=== PATIENT | male | born 1960 | race Caucasian/White ===

== ENCOUNTER 2016-12-10 09:30 | Inpatient (IN) | payer MEDICARE, BC ==
[~2016-12-10] VITALS: Ht 188 cm; Wt 110.4 kg
[2016-12-10] MEDS ORDERED: ONDANSETRON 4 MG INJ IV STA ×2 (09:52→11:14)
[2016-12-10] MEDS ORDERED: morphine 4 MG/ML VIAL IV STA (09:52)
--- NOTE | 2016-12-10 10:03 | RADRPT ---
PROCEDURE: XR Chest. CLINICAL INDICATION: Shortness of breath. Syncope TECHNIQUE: A single portable view of the chest was obtained. COMPARISON: None FINDINGS: The cardiomediastinal silhouette is within normal limits. Mild left lower lung zone airspace disease is seen. Mild right lower lung zone airspace disease is also suggested. The remaining lungs and pl eural spaces are clear. The soft tissues and osseous structures are unremarkable. IMPRESSION: Mild bibasilar airspace disease which may represent atelectasis. RPTAT: HPNM Physician Hayder Date Time Electronically viewed and signed by Physician Hayder on 12/10/2016 10:02 /
--- NOTE | 2016-12-10 10:05 | RADRPT ---
PROCEDURE: XR Shoulder. CLINICAL INDICATION: Right shoulder pain. Fall TECHNIQUE: Internal and external rotation views of the right shoulder were obtained. COMPARISON: None FINDINGS: Widening of the acromioclavicular distance is seen as well as the coracoclavicular distance. Elevat ion of the distal clavicle in relation to the acromion is seen. No acute fracture is seen. The osseo us structures are well mineralized. The soft tissue structures are intact. The visualized portions of the chest appear unremarkable. IMPRESSION: Radiographic findings suggestive of a grade 3 acromioclavicular joint separation. RPTAT: HPNM Physician Hayder Date Time Electronically viewed and signed by Physician Hayder on 12/10/2016 10:05 /
--- NOTE | 2016-12-10 10:21 | RADRPT ---
PROCEDURE: CT Brain without. CLINICAL INDICATION: Fall, on Coumadin. TECHNIQUE: A CT of the brain was performed on multidetector high-resolution CT scanner utilizing a xial sections from the skull base through the vertex without contrast. The scan was reviewed in sof t tissue brain and high frequency resolution bone algorithm windows. Images were reviewed on a high -resolution PACS workstation. One or more the following does reduction techniques were utilized: Aut omated exposure control, adjustment of the mA/ or kV according to patient's size, or use of iterativ e reconstruction technique. The exam CTDI = 43.86 mGy and the DLP = 720.23 mGy-cm. COMPARISON: None available. FINDINGS: The ventricles and sulci are mildly prominent indicative of volume loss. There is no intracranial h emorrhage, mass effect or midline shift. No abnormal intra-axial or extra-axial fluid collections a re seen. The garcia/white matter differentiation is preserved. The visualized paranasal sinuses demons trate mild scattered mucosal thickening or pronounced in ethmoid air cells. There is debris within the right sphenoid sinus. The visualized mastoid air cells are essentially clear. IMPRESSION: 1. No acute intracranial hemorrhage, transcortical infarction or mass effect. 2. Mild generalized cerebral volume loss. RPTAT: HH .Kristal Waters MD, MD Date Time Electronically viewed and signed by .Kristal Waters MD, MD on 12/10/2016 10:21 .N/
--- NOTE | 2016-12-10 10:48 | RADRPT ---
PROCEDURE: XR Knee. CLINICAL INDICATION: Left knee pain. TECHNIQUE: Three views of the left knee are available for review. COMPARISON: None available FINDINGS: No acute fracture or dislocation is seen. Mild tricompartmental degenerative changes of knee are not ed, more pronounced in medial compartment. No radiopaque foreign body is identified. Alignment is a natomic. No significant soft tissue swelling is noted. IMPRESSION: 1. No acute fracture or dislocation. 2. Mild tricompartmental degenerative changes of knee are noted, more pronounced in medial compartm ent. RPTAT: HH .Kristal Waters MD, Date Time Electronically viewed and signed by .Kristal Waters MD, on 12/10/2016 10:48 .N/
[2016-12-10] MEDS ORDERED: DILT240C79 PO (10:56)
[2016-12-10] MEDS ORDERED: WARF6TAB PO (10:56)
[2016-12-10] MEDS ORDERED: TRAM-40 PO (10:57)
[2016-12-10 10:58] LABS: ADD SCAN DIFF NO
[2016-12-10] MEDS ORDERED: ADV25050 INHALATION (10:59)
[2016-12-10] MEDS ORDERED: ALBU8.5H3 INH (11:00)
[2016-12-10 11:01] LABS: BASOPHILS % 0.1 % (0.0-2.0); EOSINOPHILS % 0.1 % (0.0-7.0); HEMATOCRIT 41.7 % (42.0-52.0); LYMPHOCYTES # 0.7 10^3/ul (0.8-2.9); LYMPHOCYTES % 4.7 % (15.0-51.0); MEAN CORPUSCULAR HEMOGLOBIN 29.9 pg (29.0-33.0); MEAN CORPUSCULAR HGB CONC 33.6 g/dl (32.0-37.0); MEAN CORPUSCULAR VOLUME 89.1 fl (82.0-101.0); MEAN PLATELET VOLUME 8.3 fl (7.4-10.4); MONOCYTE # 0.7 10^3/ul (0.3-0.9); MONOCYTES % 4.9 % (0.0-11.0); NEUTROPHIL # 12.7 10^3/ul (1.6-7.5); NEUTROPHILS % 89.6 % (39.0-77.0); PLATELET COUNT 234 10^3/UL (140-415); RED BLOOD COUNT 4.68 10^6/ul (4.70-6.10); RED CELL DISTRIBUTION WIDTH 14.6 % (11.5-14.5); WHITE BLOOD COUNT 14.2 10^3/ul (4.8-10.8)
[2016-12-10] MEDS ORDERED: FENT1PAT7 TD (11:03)
[2016-12-10 11:08] VITALS: TEMP 98.1
[2016-12-10 11:12] LABS: PARTIAL THROMBOPLASTIN TIME 39.3 Sec (25.0-35.0); PROTIME 39.7 Sec (12.2-14.2); PT RATIO 3.1
[2016-12-10 11:14] LABS: ALANINE AMINOTRANSFERASE 29 IU/L (13-69); ALBUMIN 4.3 g/dl (3.3-4.9); ALBUMIN/GLOBULIN RATIO 1.19; ALKALINE PHOSPHATASE 71 IU/L (42-121); ANION GAP 12 (8-16); ASPARTATE AMINO TRANSFERASE 47 IU/L (15-46); BILIRUBIN,INDIRECT 0.9 mg/dl (0-1.1); BILIRUBIN,TOTAL 0.9 mg/dl (0.2-1.3); BLOOD UREA NITROGEN 18 mg/dl (7-20); CALCIUM 9.2 mg/dl (8.4-10.2); CARBON DIOXIDE 26 mmol/L (21-31); CHLORIDE 103 mmol/L (97-110); CREATININE 1.09 mg/dl (0.61-1.24); GLUCOSE 117 mg/dl (70-220); POTASSIUM 3.5 mmol/L (3.5-5.1); SODIUM 137 mmol/L (135-144); TOTAL PROTEIN 7.9 g/dl (6.1-8.1)
[2016-12-10] MEDS ORDERED: HYDROmorphONE 1 MG/ML SYG IV STA ×2 (11:14→11:56)
[2016-12-10 11:25] LABS: TROPONIN-I < 0.012 ng/ml (0.00-0.12)
--- NOTE | 2016-12-10 12:59 | ERA ---
ER Documentation Chief Complaint Date/Time DATE: 12/10/16 TIME: 12:45 Chief Complaint LT SHOULDER PAIN , LT KNEE PAIN S/P FALL FROM CHAIR HPI This is a 56-year-old male that presents to the emergency department brought in by EMS after he had an unwitnessed fall just prior to arrival. The patient indicates he got up to go to the bathroom and after urinating he attempted to walk back to his bed. Between the bathroom and the bed the patient stated he had a brief transient loss of consciousness, for an unknown amount of time, with complete spontaneous recovery. When he had the syncope episode he hit his left shoulder and the left side of his head. 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 He had an IVC filter placed in 1998 which he stated is nonfunctioning and therefore has been on Coumadin since that time. He denies a headache or neck pain. He is left- handed dominant and stated he is having 10 out of 10 pain in his left shoulder and is unable to move the left shoulder secondary to pain. EMS arrived after the patient phone 911 on his cordless phone and they indicated the patient was awake on the floor and did require assistance to ambulate. Once EMS helped the patient up he was able to ambulate without any difficulty. He denies any swelling or pain of his lower extremities. He indicates his last hospitalization was August 22, 2016 at [facility] for cellulitis of his lower extremity where he received IV antibiotics and underwent rehabilitation for roughly 8 days. Patient at this time denies any shortness of breath at rest or exertion and he denies any chest pain or pressure that radiates to the neck arm back or jaw ROS All systems reviewed and are negative except as per history of present illness. Medications Home Meds Reported Medications Fentanyl Patch* (Duragesic Patch*) 12 Mcg/Hr Transdermal Patch, 1 PATCH TD Q72H , PATCH 50MCG PATCH 12/10/16 Albuterol Sulfate* (Proair HFA*) 8.5 Gm Hfa.aer.ad, 2 PUFF INH Q6H Y for WHEEZING AND SOB, #1 INHALER 12/10/16 Salmeterol Xinaf/Fluticasone* (Advair*) 250-50 Diskus Inhaler, 1 INH INHALATION BID, #1 INHALER 12/10/16 Tramadol Hcl* (Ultram*) 50 Mg Tablet, 50 MG PO BID Y for PAIN, TAB 12/10/16 Diltiazem Hcl* (Cardizem CD*) 240 Mg Cap.sr.24h, 240 MG PO DAILY, #30 CAP 12/10/16 Warfarin Sodium* (Coumadin*) 6 Mg Tablet, 6 MG PO DAILY, TAB 12/10/16 Allergies Allergies: Coded Allergies: No Known Allergy (Unverified , 12/10/16) PMhx/Soc Anesthesia Reaction: No Hx 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 Disorder: No Hx Respiratory Disorders: Yes (ASTHMA ) Hx Cardiac Disorders: Yes (HTN) Hx Psychiatric Problems: No Hx Miscellaneous Medical Probl: Yes (BLOOD CLOT ) Hx Alcohol Use: Yes Hx Substance Use: No Hx Tobacco Use: Yes Smoking Status: Current some day smoker Physical Exam Vitals Vital Signs Date Time Temp Pulse Resp B/P Pulse Ox O2 Delivery O2 Flow Rate FiO2 12/10/16 11:08 98.1 96 18 149/98 100 Room Air 12/10/16 09:39 98.1 97 18 145/90 99 Physical Exam Constitutional:Well-developed. Well-nourished. HEENT:Normocephalic. Atraumatic.Pupils were equal round reactive to light. Moist mucous membranes.No tonsillar exudates. No nasal septal hematoma. No hemotympanum. Ecchymosis over the lateral aspect of the left zygomatic arc with no subcutaneous emphysema. No midface mobility. Neck: No nuchal rigidity. No lymphadenopathy. No posterior cervical spine tenderness or step-offs. Respiratory: Not using accessory muscles of respiration.Lungs were clear to auscultation bilaterally. No rhonchi. No rales. No wheezing. Cardiovascular: Regular rate regular rhythm.No murmurs. No rubs were appreciated.S1, S2 normal. Distal pulses are palpable 2+ bilaterally. GI: Abdomen was soft. Nontender. Non Distended. No pulsatile abdominal masses or bruits. No rebound. No guarding. Bowel sounds were present and normal. Muscle skeletal: Full range of motion of both the right upper and lower extremities bilaterally.Normal muscle tone.No assymetrical calf tenderness or swelling. Tenderness of the left patella with no effusion. Lizzie's test negative bilaterally. Patient unable to move the left upper extremity due to severe pain. Tenderness over the left humeral head with no obvious bony deformity. Handgrip equal and symmetrical bilaterally. Skin: No petechia, no purpura. No lesions on the palms or the soles of the feet. No maculopapular rash. NEURO: Patient was alert, awake, orientated x3.No facial droop. Gait observed and normal with no ataxia.Speech had regular rate and rhythm. No focal neurological deficits. Result Diagram: 12/10/16 1052 12/10/16 1052 Results 24 hrs Laboratory Tests Test 12/10/16 10:52 White Blood Count 14.210^3/ul Red Blood Count 4.6810^6/ul Hemoglobin 14.0g/dl Hematocrit 41.7% Mean Corpuscular Volume 89.1fl Mean Corpuscular Hemoglobin 29.9pg Mean Corpuscular Hemoglobin Concent 33.6g/dl Red Cell Distribution Width 14.6% Platelet Count 89237^3/UL Mean Platelet Volume 8.3fl Neutrophils % 89.6% Lymphocytes % 4.7% Monocytes % 4.9% Eosinophils % 0.1% Basophils % 0.1% Nucleated Red Blood Cells % 0.0/100WBC Neutrophils # 12.710^3/ul Lymphocytes # 0.710^3/ul Monocytes # 0.710^3/ul Eosinophils # 0.010^3/ul Basophils # 0.010^3/ul Nucleated Red Blood Cells # 0.010^3/ul Prothrombin Time 39.7Sec Prothrombin Time Ratio 3.1 INR International Normalized Ratio 4.00 Activated Partial Thromboplast Time 39.3Sec Sodium Level 137mmol/L Potassium Level 3.5mmol/L Chloride Level 103mmol/L Carbon Dioxide Level 26mmol/L Anion Gap 12 Blood Urea Nitrogen 18mg/dl Creatinine 1.09mg/dl Glucose Level 117mg/dl Calcium Level 9.2mg/dl Total Bilirubin 0.9mg/dl Direct Bilirubin 0.00mg/dl Indirect Bilirubin 0.9mg/dl Aspartate Amino Transf (AST/SGOT) 47IU/L Alanine Aminotransferase (ALT/SGPT) 29IU/L Alkaline Phosphatase 71IU/L Troponin I < 0.012ng/ml Total Protein 7.9g/dl Albumin 4.3g/dl Globulin 3.60g/dl Albumin/Globulin Ratio 1.19 Current Medications Medications (Trade) Dose Ordered Sig/Valentino Route PRN Reason Start Time Stop Time Status Last Admin Dose Admin Morphine Sulfate (morphine) 4 mg ONCE STAT IV 12/10/16 09:52 12/10/16 09:53 DC 12/10/16 09:57 Ondansetron HCl (Zofran Inj) 4 mg ONCE STAT IV 12/10/16 09:52 12/10/16 09:53 DC 12/10/16 09:57 Hydromorphone HCl (Dilaudid) 1 mg ONCE STAT IV 12/10/16 11:14 12/10/16 11:15 DC 12/10/16 11:19 Ondansetron HCl (Zofran Inj) 4 mg ONCE STAT IV 12/10/16 11:14 12/10/16 11:15 DC 12/10/16 11:19 Hydromorphone HCl (Dilaudid) 1 mg ONCE STAT IV 12/10/16 11:56 12/10/16 11:57 DC 12/10/16 12:12 Ondansetron HCl (Zofran Inj) 4 mg ER BRIDGE PRN IV NAUSEA AND/OR VOMITING 12/10/16 13:00 12/11/16 12:59 Acetaminophen (Tylenol Tab) 650 mg ER BRIDGE PRN PO MILD PAIN/FEVER 12/10/16 13:00 12/11/16 12:59 Procedures/MDM The patient presented to the emergency department with a transient loss of consciousness with loss of postural tone, suggestive of a syncope episode. The differential diagnosis of syncope is vast but my workup considered common benign disorders to life-threatening processes. Therefore my differential diagnosis included but was not limited to reflex-mediated syncope such as vasovagal or carotid sinus syncope from coughing, sneezing, micturition, or GI stimulation (eg, defecation). Other etiologies in my workup included orthostatic hypotension which could cause syncope from an abrupt drop in venous return to heart from volume depletion. An EKG and cardiac enzymes were obtained to rule out cardiac arrhythmias or ischemia. Cardiopulmonary disease such as valvular disease, hypertrophic cardiomyopathy, pericardial tamponade, or pulmonary embolism were considered as a factor causing the patients syncope episode. The patient had no difference in blood pressure in both arms that could suggest aortic dissection or subclavian steal syndrome. Rectal exam was negative for fecal occult blood that could suggest GI bleeding. Ancillary laboratory work was obtained to evaluate for metabolic or electrolyte abnormalities. The patient had no witnessed brief tonic movements that could suggest postictal confusion. The patient was placed on a gumming machine operator, continuous pulse oximetry and IV access established by nursing staff. I did obtain a CT scan of the head which showed no acute intracerebral hemorrhage mass-effect or midline shift. I obtained a 2 view radiograph of the left shoulder which indicated there is no fracture but the patient did have a grade 3 chromic clavicular tear. The patient was treated with analgesic medication which included Dilaudid as the patient states he has a high tolerance to analgesic medication. The patient was placed in a sling on the left upper extremity for immobilization. 12 Lead EKG tracing ordered and reviewed by myself showed: Normal sinus rhythm of 94 bpm and no arrhythmia. OH interval normal. QRS duration normal. No ST segment elevation No ST segment depression. No changes consistent with acute ischemia. The patient is supratherapeutic on his Coumadin with INR of 4.0 however the patient had no hemoptysis hematemesis or melanotic stools. The patient indicated he took his scheduled Coumadin yesterday evening which was 6 mg on a daily basis. Utilizing the Griffith ankle and knee rules I obtained radiographic imaging of the patient's left knee which was read by the radiologist as well as myself, 3 views. The results indicated the followin. No acute fracture or dislocation. 2. Mild tricompartmental degenerative changes of knee are noted, more pronounced in medial compartment. The patient will be admitted in serious condition to the hospitalist Dr. Thapa and will go to the telemetry service due to the syncope episode and will also have an orthopedic surgeon consult for his AC tear. Departure Diagnosis: Primary Impression: Syncope Qualified Code: R55 - Syncope, unspecified syncope type Additional Impressions: Acromioclavicular joint separation, type 3 Qualified Code: S43.102A - Acromioclavicular joint separation, type 3, left, initial encounter Left knee sprain Qualified Code: S83.92XA - Sprain of left knee, unspecified ligament, initial encounter Supratherapeutic INR Condition: Serious SIMJEVON Dec 10, 2016 12:57
[2016-12-10] MEDS ORDERED: ACETAMINOPHEN 325 MG TAB PO PRN ×2 (13:00→14:30)
[2016-12-10] MEDS ORDERED: ONDANSETRON 4 MG INJ IV PRN ×2 (13:00→14:30)
[2016-12-10 13:55] VITALS: PULSE 94
[2016-12-10 14:00] VITALS: Ht 188 cm; Wt 110.4 kg
[2016-12-10] MEDS ORDERED: MAGNESIUM HYDROXIDE 30ML CUP PO PRN (14:30)
[2016-12-10] MEDS ORDERED: LORAZEPAM 2 MG INJ IV PRN ×2 (14:30→15:30)
[2016-12-10] MEDS ORDERED: NA PHOSPHATE/BIPHOS 133 ML ENEMA PR PRN (14:30)
[2016-12-10] MEDS ORDERED: traMADol 50 MG TAB PO PRN (14:30)
[2016-12-10] MEDS ORDERED: ALBUTEROL/IPRATROPIUM (NEB) 3 ML AMP HHN PRN (14:30)
[2016-12-10] MEDS ORDERED: NACL 0.9% 3 ML SYG IV SCH (14:30)
[2016-12-10] MEDS ORDERED: DOCUSATE SODIUM 100 MG CAP PO PRN (14:30)
[2016-12-10] MEDS ORDERED: NITROGLYCERIN (SL) 0.4 MG TAB SL PRN (14:30)
[2016-12-10] MEDS ORDERED: HYDROCODONE/APAP (5/325) TAB PO PRN (14:30)
[2016-12-10] MEDS: morphine 2 MG INJ IV PRN (15:14)
[2016-12-10] MEDS: SOD CHLORIDE 0.45% 1,000 ML IV SCH (15:14)
[2016-12-10 16:07] VITALS: PULSE 97
--- NOTE | 2016-12-10 16:09 | RADRPT ---
PROCEDURE: US Carotids. CLINICAL INDICATION: bruit , syncope TECHNIQUE: Multiple sonographic of the carotid bifurcation region and vertebral arteries were obta ined utilizing garcia scale, duplex and color-flow imaging. The images were reviewed on a PACS worksta tion. COMPARISON: No prior studies are available for comparison. FINDINGS: Evaluation of the right carotid bifurcation region reveals mild calcific atherosclerotic disease. Evaluation of the left carotid bifurcation region reveals mild calcific atherosclerotic disease. There is antegrade flow within the vertebral arteries bilaterally. RIGHT CAROTID MEASUREMENTS: Common Carotid Eicjte43.1 (cm/sec) Internal Carotid Artery - faoizisk33.2 (cm/sec) Internal Carotid Artery - mid42.4 (cm/sec) Internal Carotid Artery - jpoopd62.4 (cm/sec) Internal Carotid/Common Carotid0.58 LEFT CAROTID MEASUREMENTS: Common Carotid Xsyxws51.5 (cm/sec) Internal Carotid Artery - nuzseshm12.7 (cm/sec) Internal Carotid Artery - mid48 (cm/sec) Internal Carotid Artery - .4 (cm/sec) Internal Carotid/Common Carotid0.72 RPTAT: AA IMPRESSION: No evidence for hemodynamically significant stenosis in the bilateral internal carotid arteries - va lidated velocity measurements with angiographic measurements, velocity criteria are extrapolated fro m diameter data as defined by the Society of Radiologists in Ultrasound Consensus Conference Radiolo gy 2003; 229;340-346. This study does indirectly reference the measurement of the distal ICA diamet er as the denominator for stenosis measurement. Normal antegrade flow in the vertebral arteries bilaterally. .Julito Gutiérrez MD, Date Time Electronically viewed and signed by .Julito Gutiérrez MD, MD on 12/10/2016 16:09 .S/
[2016-12-10] MEDS: HYDROmorphONE 2 MG/ML SYG IV PRN ×2 (16:24→20:44)
--- NOTE | 2016-12-10 17:26 | RADRPT ---
PROCEDURE: MR Brain without contrast. CLINICAL INDICATION: 56-year-old male with syncope. TECHNIQUE: An MRI of the brain was performed without contrast utilizing the following sequences: Sagittal T1 weighted, sagittal FLAIR, axial T1, axial FLAIR, axial T2 weighted, axial diffusion weig hted, axial ADC mapping. Images were reviewed on a PACS workstation. COMPARISON: No prior studies are available for comparison. FINDINGS: Diffusion weighted sequences demonstrate no evidence of acute lacunar or lobar infarction. There is no intracranial hemorrhage, extra-axial fluid collection, mass lesion, midline shift or hydrocephal ous. There is mild prominence of the cerebral sulci, lateral and third ventricles. The basal cister ns are patent. There are several punctate foci of predominately subcortical to the / FLAIR signal h yperintensity, most likely related to chronic microangiopathic changes. Normal flow voids are visib le the proximal intracranial arteries and dural sinuses, indicating patency. The midline structures are intact. The paranasal sinuses, mastoid air cells and middle ear cavities are normally aerated. The orbits, calvarium and extracranial soft tissues are normal in appearance. The cerebellopontine angles are no rmal. No evidence of internal acoustic canal or cerebellopontine angle mass. IMPRESSION: 1. Mild peripheral and central cerebral volume loss. 2. Mild subcortical white matter lesions, likely related to chronic microangiopathic changes. 3. No acute intracranial abnormality. No intracranial hemorrhage, mass lesion, infarction or hydro cephalous. RPTAT: HGAS .Jaylen Bowser MD, MD Date Time Electronically viewed and signed by .Jaylen Bowser MD, on 12/10/2016 17:25 .S/
[2016-12-10 18:20] VITALS: BP 158/92; PULSE 102
[2016-12-10] MEDS: hydrALAzine 20 MG INJ IV PRN (19:38)
[2016-12-10 20:00] VITALS: BP 176/93; RESP 19
[2016-12-10 20:07] VITALS: PULSE 107
--- NOTE | 2016-12-10 21:26 | CONS ---
DATE OF ADMISSION: 12/10/2016 DATE OF CONSULTATION: 12/10/2016 HISTORY OF PRESENT ILLNESS: The patient is a 56-year-old right-handed male who was admitted on 11/25 when he was brought into the emergency room by EMS following his fainting or syncopal episode at home. According to the patient, he obviously lost his consciousness on his way back to his bed from the bathroom, sustaining ground-level fall. He obviously regained his consciousness spontaneou sly, but he was complaining of painful limit of motion involving his left shoulder. Following his initial evaluation, he was admitted for further evaluation and care. At the time of my examination, he was complaining of severe pain involving his left shoulder, and he was not able to move his shoulder because of the pain. There were no signs of any neurovascular co mpromise involving the left upper extremity. There was mild swelling with considerable tenderness o yahir the left acromioclavicular joint. There seems to be an increased upward motion of the distal en d of the left clavicle. X-rays of the left shoulder revealed a mild upward displacement of the distal end of the left clavic le. However, there was no complete dislocation. DIAGNOSTIC IMPRESSION: Sprain of the acromioclavicular joint of the left shoulder, probably second degree. TREATMENT PLAN: 1. Immobilization of the left shoulder utilizing [id number]-rm-[id number] clavicle brace. 2. Repeat the x-rays of both shoulders in a npvopa-aw-dplot brace. Dictated By: HUSAM ERICKSON/ANT Conf#: [id number] DID#: [id number]
--- NOTE | 2016-12-10 23:22 | SP ---
DATE OF PROCEDURE: PROCEDURE: Electroencephalogram. REFERRING PHYSICIAN: Dr. Sheffield. TECHNIQUE: EEG done using 10-20 International electrode system with photic stimulation. FINDINGS: Bilateral occipital hemisphere view shows alpha wave 8 to 9 Hz, medium sized, low amplitu de, asymmetric bilateral. Some electromyogram artifact recorded. No epileptiform discharge or seiz ure activity is recorded. Photic stimulation done did not elicit a drive. IMPRESSION: This is normal electroencephalogram. No epileptiform discharge or seizure activity is recorded. Followup EEG may be needed if clinically indicated. Again, thank you for asking me to see the patient with you. Dictated By: MAGGY BRITO MD NA/NTS Conf#: [id number] DID#: [id number] CC: TRAVIS SHEFFIELD;*EndCC*
--- NOTE | 2016-12-10 23:28 | CONS ---
DATE OF ADMISSION: 12/10/2016 DATE OF CONSULTATION: REFERRING PHYSICIAN: Dr. Sheffield. Thank you for asking me to see the patient with you. HISTORY OF PRESENT ILLNESS: The patient is a 56-year-old male who presented to the emergency room a fter he fell when the patient went to the bathroom, and after he went, he attempted to walk back to his bed in which he had loss of consciousness for unknown amount of time. The patient has an IVC fi lter as well as he is on Coumadin. The patient admitted to [facility]. EEG was o rdered in which I got a call about him. CURRENT MEDICATIONS: Includes: 1. Fentanyl patch 12 mcg per hour, 1 patch TD every 72 hours. 2. Albuterol inhaler twice a day. 3. Salmeterol inhaler. 4. Tramadol 50 mg b.i.d. 5. Diltiazem 240 mg ever 24 hours. 6. Warfarin 6 mg tablet daily. ALLERGIES: NO ALLERGY TO KNOWN MEDICATION. PAST MEDICAL HISTORY: In the form of asthma, hypertension, alcohol use, tobacco use. PHYSICAL EXAMINATION: GENERAL: Today, the patient is alert, awake, oriented for time, place, and person. Normal speech a nd normal language. CRANIAL NERVES: Cranial nerve II: Pupils equal on both sides, reactive to light. Cranial nerves I II, IV, and : Extraocular muscles intact. No nystagmus. Cranial nerve V: Equal sensation to fa ce. Cranial nerve VII: Symmetrical face. Cranial nerve VIII: Equal hearing bilaterally. Cranial IX, X: Elevates palate. Cranial nerve XI: Elevates shoulder 5/5 on the right side. Left side wi th weakness. SENSATION: Decreased for glove and sock area for light touch and temperature. COORDINATION: Cabzvc-fx-kfrj test intact. HEART: Regular rate and rhythm. LUNGS: Equal breath sounds. ABDOMEN: Soft, relaxed, nondistended. No tenderness. ASSESSMENT AND PLAN: 1. The patient is a 56-year-old status post fall, possibility of seizure activity in which the yris ent had electroencephalogram. I am going to start the patient on Keppra 500 mg twice a day and see how the patient responds for that. 2. Status post fall with the possibility of underlying syncopal attack. Follow up the patient with carotid Doppler and 2D echocardiogram. 3. We will keep the patient under fall precautions. 4. Status post anticoagulation. Again, thank you for asking me to see the patient with you. Dictated By: MAGGY DAVILA/ANT Conf#: [id number] DID#: [id number] CC: TRAVIS SHEFFIELD;*EndCC*
[2016-12-11] VITALS (16 sets, daily range): BP systolic 138–180; BP diastolic 69–101; PULSE 98–123; RESP 18–22
[2016-12-11 00:12] LABS: ADD UMIC YES; URINE BLOOD (Dip) NEGATIVE (NEGATIVE); URINE COLOR YELLOW (YELLOW); URINE GLUCOSE (Dip) NEGATIVE (NEGATIVE); URINE KETONES (Dip) 15 (NEGATIVE); URINE LEUKOCYTE ESTERASE (Dip) NEGATIVE (NEGATIVE); URINE NITRITE (Dip) NEGATIVE (NEGATIVE); URINE TOTAL PROTEIN (Dip) 1+ (NEGATIVE); URINE UROBILINOGEN (Dip) 0.2 E.U./dL (0.1-1.0)
[2016-12-11 00:20] LABS: URINE BILIRUBIN (Dip) NEGATIVE (NEGATIVE)
[2016-12-11 00:26] LABS: BACTERIA,URINE FEW; SQUAMOUS EPITHELIAL CELL,UR MANY; URINE RBCS 0-2 /HPF (0)
[2016-12-11] MEDS: HYDROmorphONE 2 MG/ML SYG IV PRN ×6 (00:48→22:17)
[2016-12-11] MEDS: SOD CHLORIDE 0.45% 1,000 ML IV SCH ×2 (05:05→18:02)
[2016-12-11] MEDS: PANTOPRAZOLE (EC) 40 MG TAB PO SCH (05:49)
[2016-12-11 07:37] LABS: ADD SCAN DIFF NO
[2016-12-11 07:45] LABS: BASOPHILS % 0.2 % (0.0-2.0); EOSINOPHILS # 0.1 10^3/ul (0.0-0.5); EOSINOPHILS % 0.8 % (0.0-7.0); HEMATOCRIT 39.6 % (42.0-52.0); HEMOGLOBIN 13.2 g/dl (14.0-18.0); LYMPHOCYTES # 1.2 10^3/ul (0.8-2.9); MEAN CORPUSCULAR HGB CONC 33.3 g/dl (32.0-37.0); MEAN PLATELET VOLUME 8.8 fl (7.4-10.4); MONOCYTE # 0.8 10^3/ul (0.3-0.9); NEUTROPHIL # 8.8 10^3/ul (1.6-7.5); NEUTROPHILS % 80.5 % (39.0-77.0); PLATELET COUNT 244 10^3/UL (140-415); RED CELL DISTRIBUTION WIDTH 15.1 % (11.5-14.5)
[2016-12-11 07:55] LABS: INR 5.1; PROTIME 48.1 Sec (12.2-14.2); PT RATIO 3.8
[2016-12-11 08:02] LABS: CALCIUM 8.5 mg/dl (8.4-10.2); CHOL/HDL RATIO 4.8 RATIO; CREATININE 1.01 mg/dl (0.61-1.24); MAGNESIUM 2.1 mg/dl (1.7-2.5); PHOSPHORUS 3.7 mg/dl (2.5-4.9); POTASSIUM 3.7 mmol/L (3.5-5.1)
--- NOTE | 2016-12-11 08:18 | HP ---
DATE OF ADMISSION: 12/10/2016 This is a 56-year-old male. CHIEF COMPLAINT: Syncope. HISTORY OF PRESENT ILLNESS: A 56-year-old male with past medical history of multiple DVTs in the past, nonfunctioning placed, chronic back pain from L4, L5, and S1 herniated disk disease, prior lower extremity cellulitis. He was brought in because of left shoulder pain and syncopal event. The patient went bathroom, then to walk back to his bed he noticed lightheadedness, then fell. He does not remember how long he was out. He hit his left shoulder and left side of his head. He lives in a complex and neighbors had heard him fall , called EMS. He denies leak of urine or stool. He said he may have had the seizure in the past years ago, but at this time he noticed he has bit at his upper lip and tongue mildly as well. Denied any chest pain or shortness of breath. No nausea or vomiting. No fevers or chills. There is no constipation. When he came in today, he had some imaging performed which showed injury to AC joint in shoulder. The patient was treated at [facility] back in late July or early August of this year for his lower extremity cellulitis. Patient states that he normally uses a cane at home to walk, but he left the cane at his brother's house a few months ago, has not have that available to use. Denies any prior history of any syncopal No recent changes to his medications. No history of any arrhythmias The patient came into the ER today. He was also found with an elevated INR of 4.0. No signs of any bleeding. PAST MEDICAL HISTORY: As stated above. Asthma and hypertension. ALLERGIES: NO KNOWN DRUG ALLERGIES. MEDICATIONS: 2. Ultram 50 mg p.o. b.i.d. 3. Advair PAST SURGICAL HISTORY: unknown SOCIAL HISTORY: He drinks occasional alcohol, but he quit smoking a week and a half ago but before that, smoking 1/2 pk of cigarettes a day for the last 20 years PHYSICAL EXAMINATION: GENERAL: The patient lying in bed, appears to have some slight slurred speech but no acute distress. HEENT: Pupils equal, round, react to light. Extraocular muscles intact. NECK: Supple. No thyromegaly. CARDIOVASCULAR: S1 and S2 heard. Distant breath sounds. ABDOMEN: Soft, nontender, ND, no R or G EXTREMITIES: He has got tenderness UE secondary to pain, otherwise bilateral lower extremity nL NEUROLOGIC: No focal deficits LABORATORIES AND IMAGING: INR is 4.0. The x-ray left knee shows no acute fractures or dislocation. chest x-ray showed mild bibasilar airspace disease ASSESSMENT AND PLAN: 1. syncopal event - admit to tele, monitor his heart rate very carefully. Get an MRI of the brain. Consider doing neuro checks, 2D echocardiogram as well and carotid Doppler studies and check a TSH and lipid panel and A1c. Give her IV fluids We will also do EEG 2. Elevated INR - monitor for now, no present bleeding, so I will hold off on vit K for now 3. History of deep venous thrombosis. Again, see #2 4. Shoulder AC join pain - get orthopedic surgery consult, pain control medications Dictated By: TRAVIS GOODRICH/ANT Conf#: [id number] DID#: [id number] LISA
[2016-12-11 08:31] LABS: THYROID STIMULATING HORMONE 1.37 MIU/L (0.465-4.680)
[2016-12-11] MEDS: LEVETIRACETAM 500 MG TAB PO SCH ×2 (08:49→21:27)
[2016-12-11] MEDS: ASPIRIN (EC) 81 MG TAB PO SCH (08:50)
--- NOTE | 2016-12-11 11:11 | RADRPT ---
Echocardiogram Report Patient Name: LUBA MACHADO Gender: Male Date: 1960 Study Date: 11-Dec-2016 Network Control Operator: Lilia Youngblood [facility] Location: 5548 Ref. Physician: TRAVIS SHEFFIELD Quality: Technically Difficult Study Procedures: Transthoracic echocardiogram with complete 2D, M-Mode, and doppler examination. Indications: Syncope. 2D/M Mode Doppler Measurement Value Normal Ranges Measurement Value Normal Ranges LVIDd 2D 3.6 3.5 - 5.6 cm AV Peak Clinton 1.0 m/sec LVIDs 2D 2.1 2.1 - 4.1 cm AV Peak PG 4.0 mmHg FS 2D 43.1 % LVOT Peak Clinton 0.9 m/sec LVPWd 2D 1.1 0.6 - 1.1 cm LVOT Peak PG 4.0 mmHg IVSd 2D 1.1 0.6 - 1.1 cm MV E Peak Clinton 0.5 m/sec IVS/LVPW 2D 1.1 MV A Peak Clinton 0.8 m/sec AoR Diam 2D 2.8 2.0 - 3.7 cm MV E/A 0.6 LA/Ao 2D 1 0 - 1 MV Decel Time 169 msec EDV 2D 47.4 cm3 MV E/A 0.6 ESV 2D 8.7 cm3 TR Peak Clinton 3.1 m/sec LA Dimen 2D 2.4 2.3 - 4.0 cm TR Peak PG 39.0 mmHg RVSP 42.0 mmHg Findings Left Ventricle: Normal left ventricular systolic function. Normal left ventricular cavity size. Mild concentric left ventricular hypertrophy. Ejection fraction is visually estimated at 65 %. Tissue Doppler/Mitral Doppler indices are consistent with impaired relaxation (Stage I diastolic dysfunction). Right Ventricle: Normal right ventricular size. Normal right ventricular systolic function. Left Atrium: There is mild enlargement of left atrium. Right Atrium: The right atrium is normal in size. Mitral Valve: Normal appearance and function of the mitral valve with trace physiologic regurgitation. Aortic Valve: Normal appearance of the aortic valve. No significant aortic stenosis or insufficiency. Tricuspid Valve: Tricuspid valve not well visualized. Estimated peak PA systolic pressure 39 mmHg. There is trace to mild tricuspid regurgitation. Pulmonic Valve: Normal pulmonic valve appearance. Pericardium: Normal pericardium with no significant pericardial effusion. Aorta: Normal aortic root. IVC: The IVC is not well visualized. Conclusions 1.Normal left ventricular systolic function. Normal left ventricular cavity size. Mild concentric left ventricular hypertrophy. Ejection fraction is visually estimated at 65 %. Tissue Doppler/Mitral Doppler indices are consistent with impaired relaxation (Stage I diastolic dysfunction). 2.No significant valvular stenosis or regurgitation seen. 3.Estimated peak PA systolic pressure 39 mmHg plus RA pressure. Electronically Signed By: Jl Leo 11-Dec-2016 11:10:53 -7500 Patient Name: LUBA MACHADO Study Date: 11-Dec-[id number]
--- NOTE | 2016-12-11 11:37 | PN ---
Date/Time of Note Date/Time of Note DATE: 12/11/16 TIME: 11:25 Assessment/Plan VTE Prophylaxis VTE Prophylaxis Intervention: other VTE Contraindication Reason: blood coagulation disorder Lines/Catheters IV Catheter Type (from Nrsg): Saline Lock Urinary Cath still in place: Yes Reason Cath still needed: other (indicate) (will d/c) Assessment/Plan Assessment/Plan 56yo M with 1. Syncopal episode, ?source 2. S/p fall with traumatic L shoulder displacement 3. L sided hip and knee pain without fractures 2/2 fall 4. Supratherapeutic INR 2/2 non compliance with followup 5. Hx of LE DVT + Chronic PVD in legs and abd warranting chronic Coumadin use 6. Chronic pain from ?back injury 7. COPD 2/2 Chronic tobacco use 8. Probable UTI PLAN: * Patient still awaiting figure o 8 brace for shoulder injury * F/u PT eval and recommendations * Started on Keppra per neurology * Continue to hold coumadin and trend INR * Urine cultures and empiric abx * add Percocet to regimen for improved pain control for now, consider pain mgt consult if no improvement * Smoking Cessation Therapy: Pt. was lectured for greater than 3 minutes on the health risks of continued smoking and the benefits of cessation and this will continue to be reinforced throughout hospitalization. * Complete ACS r/o as part of syncopy workup * PRN pain control/ antiemetics/ antipyretics/ supportive care PROPHYLAXIS: INR supratherapeutic + Protonix Subjective 24 Hr Interval Summary Free Text/Dictation still c/o L shoulder pain Wants to stay on coumadin, does not want any of the newer drugs on 50mcg fentanyl patch at home, asking for higher doses of dilaudid also c/o L knee and hip pain Exam/Review of Systems Vital Signs Vitals Vital Signs Date Time Temp Pulse Resp B/P Pulse Ox O2 Delivery O2 Flow Rate FiO2 12/11/16 08:00 98 12/11/16 07:32 98.8 20 162/94 93 12/10/16 11:08 Room Air Intake and Output 12/10/16 12/10/16 12/11/16 14:59 22:59 06:59 Intake Total 225 ml 775 ml Output Total 200 ml 400 ml Balance 25 ml 375 ml Exam Constitutional: alert, distress (mild from shoulder pain), oriented Psych: nl mood/affect Head: atraumatic, normocephalic Eyes: PERRL ENMT: mucosa pink and moist Neck: supple Respiratory: clear to auscultation Cardiovascular: regular rate and rhythm, No murmurs/extra sounds Gastrointestinal: bowel sounds, non-tender, soft Musculoskeletal: other (RUE in sling) Extremities: No edema 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: nl mental status Results Result Diagram: 12/11/16 0650 12/11/16 0650 Results 24 hrs Laboratory Tests Test 12/10/16 15:20 12/11/16 06:50 Urine Color YELLOW Urine Clarity SLIGHTLY CLOUDY Urine pH 5.0 Urine Specific Eliot >=1.030 H Urine Ketones 15 Urine Nitrite NEGATIVE Urine Bilirubin NEGATIVE Urine Urobilinogen 0.2 E.U./dL Urine Leukocyte Esterase NEGATIVE Urine Microscopic RBC 0-2 Urine Microscopic WBC 2-5 Urine Squamous Epithelial Cells MANY Urine Bacteria FEW Urine Hemoglobin NEGATIVE Urine Glucose NEGATIVE Urine Total Protein 1+ H White Blood Count 11.0 #H Red Blood Count 4.40 L Hemoglobin 13.2 L Hematocrit 39.6 L Mean Corpuscular Volume 90.0 Mean Corpuscular Hemoglobin 30.0 Mean Corpuscular Hemoglobin Concent 33.3 Red Cell Distribution Width 15.1 H Platelet Count 244 Mean Platelet Volume 8.8 Neutrophils % 80.5 H Lymphocytes % 11.0 L Monocytes % 7.0 Eosinophils % 0.8 Basophils % 0.2 Nucleated Red Blood Cells % 0.0 Neutrophils # 8.8 H Lymphocytes # 1.2 Monocytes # 0.8 Eosinophils # 0.1 Basophils # 0.0 Nucleated Red Blood Cells # 0.0 Prothrombin Time 48.1 #H Prothrombin Time Ratio 3.8 INR International Normalized Ratio 5.10 Sodium Level 137 Potassium Level 3.7 Chloride Level 106 Carbon Dioxide Level 22 Anion Gap 13 Blood Urea Nitrogen 25 H Creatinine 1.01 Glucose Level 109 Hemoglobin A1c 4.9 Calcium Level 8.5 Phosphorus Level 3.7 Magnesium Level 2.1 Triglycerides Level 91 Cholesterol Level 185 LDL Cholesterol, Calculated 129 HDL Cholesterol 38 Cholesterol/HDL Ratio 4.8 Thyroid Stimulating Hormone (TSH) 1.370 Medications Medications Current Medications Ondansetron HCl (Zofran Inj) 4 mg Q6H PRN IV NAUSEA AND/OR VOMITING; Start at 14:30 Acetaminophen (Tylenol Tab) 650 mg Q6H PRN PO PAIN LEVEL 1-3 OR FEVER; Start at 14:30 Acetaminophen/ Hydrocodone Bitart ([place] (5/325)) 1 tab Q6H PRN PO MODERATE PAIN LEVEL 4-6; Start 12/10/16 at 14:30 Morphine Sulfate (morphine) 2 mg Q4H PRN IV SEVERE PAIN LEVEL 7-10 Last administered on 12/10/16 15:14; Admin Dose 2 MG; Start 12/10/16 at 14:30 Docusate Sodium (Colace) 100 mg Q12H PRN PO CONSTIPATION; Start 12/10/16 at 14: 30 Magnesium Hydroxide (Milk Of Mag) 30 ml DAILY PRN PO CONSTIPATION; Start at 14:30 Sodium Biphosphate/ Sodium Phosphate (Fleet Enema) 133 ml DAILY PRN MS CONSTIPATION; Start 12/10/16 at 14:30 Pantoprazole 40 mg 40 mg DAILY@06 PO ; Start 12/11/16 at 06:00 Sodium Chloride (1/2 NS) 1,000 ml @ 75 mls/hr [id number] IV Last administered on 12/11/16 05:05; Admin Dose 75 MLS/HR; Start 12/10/16 at 14:30 Hydralazine HCl (Apresoline) 10 mg Q6H PRN IV ELEVATED BLOOD PRESSURE Last administered on 12/10/16 19:38; Admin Dose 10 MG; Start 12/10/16 at 14:30 Nitroglycerin (Nitroglycerin (Sl Tab) 0.4 Mg) 1 tab Q5M PRN SL ANGINA; Start at 14:30 Aspirin (Halfprin) 162 mg DAILY PO Last administered on 12/11/16 08:50; Admin Dose 162 MG; Start 12/11/16 at 09:00 Tramadol HCl (Ultram) 50 mg BID PRN PO PAIN; Start 12/10/16 at 14:30 Hydromorphone HCl (Dilaudid) 2 mg Q4H PRN IV PAIN Last administered on 08:51; Admin Dose 2 MG; Start 12/10/16 at 15:30 Lorazepam (Ativan) 1 mg Q1H PRN IV SEIZURES; Start 12/10/16 at 15:30 Levetiracetam 500 mg 500 mg BID PO Last administered on 4/17/17at 08:49; Admin Dose 500 MG; Start 12/11/16 at 09:00 Ceftriaxone Sodium (Rocephin) 50 ml @ 100 mls/hr Q24H IVPB ; Start 12/11/16 at 11:00 Procedures Procedures PROCEDURE: XR Knee. CLINICAL INDICATION: Left knee pain. TECHNIQUE: Three views of the left knee are available for review. COMPARISON: None available FINDINGS: No acute fracture or dislocation is seen. Mild tricompartmental degenerative changes of knee are noted, more pronounced in medial compartment. No radiopaque foreign body is identified. Alignment is anatomic. No significant soft tissue swelling is noted. IMPRESSION: 1. No acute fracture or dislocation. 2. Mild tricompartmental degenerative changes of knee are noted, more pronounced in medial compartment. RPTAT: HH .Kristal Waters MD, MD Date Time Electronically viewed and signed by .Kristal Waters MD, MD on 12/10/2016 10: 48 .N/ CC: JEVON MONTEMAYOR Echocardiogram Report Patient Name: LUBA MACHADO Gender: Male Date: 1960 Study Date: 11-Dec-2016 Pug Machine Operator: Lilia Youngblood RDCS Location: 55 Ref. Physician: TRAVIS SHEFFIELD Quality: Technically Difficult Study Procedures: Transthoracic echocardiogram with complete 2D, M-Mode, and doppler examination. Indications: Syncope. 2D/M Mode Doppler Measurement Value Normal Ranges Measurement Value Normal Ranges LVIDd 2D 3.6 3.5 - 5.6 cm AV Peak Clinton 1.0 m/sec LVIDs 2D 2.1 2.1 - 4.1 cm AV Peak PG 4.0 mmHg FS 2D 43.1 % LVOT Peak Clinton 0.9 m/sec LVPWd 2D 1.1 0.6 - 1.1 cm LVOT Peak PG 4.0 mmHg IVSd 2D 1.1 0.6 - 1.1 cm MV E Peak Clinton 0.5 m/sec IVS/LVPW 2D 1.1 MV A Peak Clinton 0.8 m/sec AoR Diam 2D 2.8 2.0 - 3.7 cm MV E/A 0.6 LA/Ao 2D 1 0 - 1 MV Decel Time 169 msec EDV 2D 47.4 cm3 MV E/A 0.6 ESV 2D 8.7 cm3 TR Peak Clinton 3.1 m/sec LA Dimen 2D 2.4 2.3 - 4.0 cm TR Peak PG 39.0 mmHg RVSP 42.0 mmHg Findings Left Ventricle: Normal left ventricular systolic function. Normal left ventricular cavity size. Mild concentric left ventricular hypertrophy. Ejection fraction is visually estimated at 65 %. Tissue Doppler/Mitral Doppler indices are consistent with impaired relaxation (Stage I diastolic dysfunction). Right Ventricle: Normal right ventricular size. Normal right ventricular systolic function. Left Atrium: There is mild enlargement of left atrium. Right Atrium: The right atrium is normal in size. Mitral Valve: Normal appearance and function of the mitral valve with trace physiologic regurgitation. Aortic Valve: Normal appearance of the aortic valve. No significant aortic stenosis or insufficiency. Tricuspid Valve: Tricuspid valve not well visualized. Estimated peak PA systolic pressure 39 mmHg. There is trace to mild tricuspid regurgitation. Pulmonic Valve: Normal pulmonic valve appearance. Pericardium: Normal pericardium with no significant pericardial effusion. Aorta: Normal aortic root. IVC: The IVC is not well visualized. Conclusions 1. Normal left ventricular systolic function. Normal left ventricular cavity size. Mild concentric left ventricular hypertrophy. Ejection fraction is visually estimated at 65 %. Tissue Doppler/Mitral Doppler indices are consistent with impaired relaxation (Stage I diastolic dysfunction). 2. No significant valvular stenosis or regurgitation seen. 3. Estimated peak PA systolic pressure 39 mmHg plus RA pressure. Electronically Signed By: Jl Leo 11-Dec-2016 11:10:53 -0700 Patient Name: LUBA MACHADO Study Date: 11-Dec-[id number] JIMENA CHAMBERS Dec 11, 2016 11:36
[2016-12-11 12:04] LABS: CREATINE KINASE 1240 IU/L (23-200)
[2016-12-11] MEDS: OXYCODONE/ACETAMINOPHEN (10/325) TAB PO PRN ×2 (12:16→21:29)
[2016-12-11] MEDS: CEFTRIAXONE 1 GM/50 ML (PMX) 50 ML IVPB SCH (12:17)
[2016-12-11] MEDS: HYDROCHLOROTHIAZIDE 25 MG TAB PO SCH (12:17)
[2016-12-11 12:21] LABS: CK-MB 3.29 ng/ml (0.0-2.4); TROPONIN-I < 0.012 ng/ml (0.00-0.12)
[2016-12-11 14:40] LABS: CREATINE KINASE > 1600 IU/L (23-200)
[2016-12-11 14:41] LABS: CK-MB 3.54 ng/ml (0.0-2.4)
[2016-12-11] MEDS: DOCUSATE SODIUM 100 MG CAP PO SCH ×2 (15:29→21:27)
[2016-12-11 15:41] LABS: TROPONIN-I < 0.012 ng/ml (0.00-0.12)
[2016-12-11] MEDS: hydrALAzine 20 MG INJ IV PRN (18:24)
[2016-12-12] VITALS (11 sets, daily range): BP systolic 134–179; BP diastolic 87–96; PULSE 93–110; RESP 20
[2016-12-12] MEDS: morphine 2 MG INJ IV PRN ×2 (00:05→06:06)
[2016-12-12] MEDS: HYDROmorphONE 2 MG/ML SYG IV PRN ×5 (02:25→20:31)
[2016-12-12] MEDS: PANTOPRAZOLE (EC) 40 MG TAB PO SCH (06:06)
[2016-12-12] MEDS: SOD CHLORIDE 0.45% 1,000 ML IV SCH ×2 (06:30→12:23)
[2016-12-12 06:58] LABS: ADD SCAN DIFF NO
[2016-12-12 07:02] LABS: BASOPHILS % 0.2 % (0.0-2.0); EOSINOPHILS # 0.3 10^3/ul (0.0-0.5); EOSINOPHILS % 2.5 % (0.0-7.0); HEMATOCRIT 36.1 % (42.0-52.0); HEMOGLOBIN 12.6 g/dl (14.0-18.0); LYMPHOCYTES # 1.7 10^3/ul (0.8-2.9); LYMPHOCYTES % 13.7 % (15.0-51.0); MEAN CORPUSCULAR HEMOGLOBIN 30.9 pg (29.0-33.0); MEAN CORPUSCULAR HGB CONC 34.9 g/dl (32.0-37.0); MEAN CORPUSCULAR VOLUME 88.5 fl (82.0-101.0); MEAN PLATELET VOLUME 9.1 fl (7.4-10.4); MONOCYTE # 1.2 10^3/ul (0.3-0.9); NEUTROPHIL # 8.9 10^3/ul (1.6-7.5); NEUTROPHILS % 73.3 % (39.0-77.0); PLATELET COUNT 279 10^3/UL (140-415); RED BLOOD COUNT 4.08 10^6/ul (4.70-6.10); RED CELL DISTRIBUTION WIDTH 14.7 % (11.5-14.5); WHITE BLOOD COUNT 12.2 10^3/ul (4.8-10.8)
[2016-12-12 07:06] LABS: INR 3.48; PROTIME 35.5 Sec (12.2-14.2); PT RATIO 2.8
[2016-12-12 07:09] LABS: POTASSIUM 3.5 mmol/L (3.5-5.1)
[2016-12-12 07:11] LABS: CREATININE 0.98 mg/dl (0.61-1.24)
[2016-12-12 07:12] LABS: CALCIUM 8.8 mg/dl (8.4-10.2)
[2016-12-12] MEDS: ASPIRIN (EC) 81 MG TAB PO SCH (07:59)
[2016-12-12] MEDS: DOCUSATE SODIUM 100 MG CAP PO SCH ×2 (07:59→20:30)
[2016-12-12] MEDS: HYDROCHLOROTHIAZIDE 25 MG TAB PO SCH (08:00)
[2016-12-12] MEDS: LEVETIRACETAM 500 MG TAB PO SCH ×2 (08:00→20:30)
[2016-12-12] MEDS: OXYCODONE/ACETAMINOPHEN (10/325) TAB PO PRN ×2 (10:08→18:03)
[2016-12-12] MEDS: CEFTRIAXONE 1 GM/50 ML (PMX) 50 ML IVPB SCH (11:32)
[2016-12-12] MEDS: hydrALAzine 20 MG INJ IV PRN (11:32)
[2016-12-12] MEDS: SOD CHLORIDE 0.9% 1,000 ML IV SCH ×2 (16:09→21:10)
[2016-12-12] MEDS: METOPROLOL 25 MG TAB PO SCH ×2 (17:12→20:31)
[2016-12-12] MEDS: NIFEdipine (XL) 30 MG TAB PO SCH ×2 (17:13→20:30)
[2016-12-12] MEDS ORDERED: METOPROLOL 25 MG TAB PO SCH (21:00)
--- NOTE | 2016-12-12 22:30 | PN ---
DATE: REFERRING PHYSICIAN: Dr. Thapa. Thank you for asking me to see the patient with you . HISTORY OF PRESENT ILLNESS: The patient is 56 years old who was admitted to emergency room status post fall while attempting to go to the bathroom, loss of consciousness. CURRENT MEDICATIONS: Include: 1. Albuterol inhaler. 2. Tramadol 50 mg twice a day. 3. Diltiazem 240 mg once a day. 4. Warfarin 6 mg once a day. 5. Fentanyl patch once a day. ALLERGIES: NO ALLERGY TO KNOWN MEDICATION. PAST MEDICAL HISTORY: In the form of asthma, hypertension, alcohol use, tobacco use. PHYSICAL EXAMINATION: GENERAL: On exam today, the patient is alert, awake, oriented for time, place, and person. Normal speech and normal language. CRANIAL NERVES: Cranial nerve II: Pupils equal on both sides, reactive to light. Cranial nerves III, IV and : Extraocular muscles intact. No nystagmus. Cranial nerve V: Equal sensation to face. Cranial nerve VII: Symmetrical face. Cranial nerve VIII: Equal hearing bilaterally. Cranial nerve IX and X: Elevates palate. Cranial nerve XI: Elevates shoulder 5/5. Cranial nerve XII: With straight tongue. MOTOR: Decreased for glove and sock area for light touch and temperature. COORDINATION: [id number] test intact. HEART: Regular rate and rhythm. LUNGS: Equal breath sounds. ABDOMEN: Soft, relaxed, nondistended, nontender. ASSESSMENT AND PLAN: 1. The patient is a 56-year-old status post fall with underlying seizure activity. I am going to start the patient on Keppra 500 mg twice a day. 2. Status post fall with possibility of underlying syncopal attack. Follow up the patient with carotid Doppler and 2D echocardiogram. 3. Keep the patient under fall precaution and aspiration precaution. 4. Status post anticoagulation therapy. Again, thank you for asking me to see the patient with you. Dictated By: MAGGY DAVILA/ANT Conf#: [id number] DID#: [id number] MTDD
[2016-12-13] VITALS (11 sets, daily range): BP systolic 140–157; BP diastolic 77–94; PULSE 83–98; RESP 16–20
[2016-12-13] MEDS: OXYCODONE/ACETAMINOPHEN (10/325) TAB PO PRN ×3 (00:11→20:35)
[2016-12-13] MEDS: HYDROmorphONE 2 MG/ML SYG IV PRN ×3 (02:16→22:42)
[2016-12-13] MEDS: SOD CHLORIDE 0.9% 1,000 ML IV SCH ×4 (03:27→23:50)
[2016-12-13] MEDS: PANTOPRAZOLE (EC) 40 MG TAB PO SCH (05:36)
[2016-12-13 08:03] LABS: ADD SCAN DIFF NO
[2016-12-13 08:05] LABS: BASOPHILS % 0.4 % (0.0-2.0); EOSINOPHILS # 0.4 10^3/ul (0.0-0.5); EOSINOPHILS % 3.9 % (0.0-7.0); HEMATOCRIT 36.8 % (42.0-52.0); HEMOGLOBIN 12.5 g/dl (14.0-18.0); LYMPHOCYTES # 1.7 10^3/ul (0.8-2.9); LYMPHOCYTES % 15.2 % (15.0-51.0); MEAN CORPUSCULAR HEMOGLOBIN 30.5 pg (29.0-33.0); MEAN CORPUSCULAR VOLUME 89.8 fl (82.0-101.0); MEAN PLATELET VOLUME 9.1 fl (7.4-10.4); MONOCYTE # 1.1 10^3/ul (0.3-0.9); MONOCYTES % 10.1 % (0.0-11.0); NEUTROPHIL # 7.8 10^3/ul (1.6-7.5); NEUTROPHILS % 69.7 % (39.0-77.0); PLATELET COUNT 284 10^3/UL (140-415); RED CELL DISTRIBUTION WIDTH 14.9 % (11.5-14.5); WHITE BLOOD COUNT 11.2 10^3/ul (4.8-10.8)
[2016-12-13 08:23] LABS: CALCIUM 8.7 mg/dl (8.4-10.2); CREATININE 0.81 mg/dl (0.61-1.24); POTASSIUM 3.7 mmol/L (3.5-5.1)
[2016-12-13 08:37] LABS: INR 1.75; PROTIME 20.6 Sec (12.2-14.2); PT RATIO 1.6
[2016-12-13] MEDS: NIFEdipine (XL) 30 MG TAB PO SCH (08:40)
[2016-12-13] MEDS: ASPIRIN (EC) 81 MG TAB PO SCH (08:40)
[2016-12-13] MEDS: DOCUSATE SODIUM 100 MG CAP PO SCH ×2 (08:40→20:35)
[2016-12-13] MEDS: METOPROLOL 25 MG TAB PO SCH ×2 (08:40→20:36)
[2016-12-13] MEDS: LEVETIRACETAM 500 MG TAB PO SCH ×2 (08:40→20:35)
[2016-12-13] MEDS: CEFTRIAXONE 1 GM/50 ML (PMX) 50 ML IVPB SCH (12:16)
[2016-12-13] MEDS: ALBUTEROL HFA 8 GM INHALER INH PRN (12:34)
--- NOTE | 2016-12-13 14:03 | PN ---
Date/Time of Note Date/Time of Note DATE: 12/13/16 TIME: 13:44 Assessment/Plan VTE Prophylaxis VTE Prophylaxis Intervention: other (coumadin) Lines/Catheters [facility] Peripheral IV Urinary Cath still in place: No Assessment/Plan Assessment/Plan 1. Syncope, negative echo/carotid us 2. 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 Hypertension, resume cardizem 4. Neurology starts on keppra 5. Rhabdomyolysis due to fall, follow up with CPK 6. Left shoulder grade 3 acromioclavicular joint separation, on figure-of- eight clavicle brace per Dr. Beauchamp Subjective 24 Hr Interval Summary Free Text/Dictation weakness Exam/Review of Systems Vital Signs Vitals Vital Signs Date Time Temp Pulse Resp B/P Pulse Ox O2 Delivery O2 Flow Rate FiO2 12/13/16 12:00 87 12/13/16 11:55 98.8 19 157/77 94 12/10/16 11:08 Room Air Intake and Output 12/12/16 12/12/16 12/13/16 15:00 23:00 07:00 Intake Total 50 ml 600 ml 350 ml Output Total 925 ml 700 ml Balance 50 ml -325 ml -350 ml Exam Constitutional: alert, oriented, well developed Psych: nl mood/affect, no complaints Head: atraumatic, normocephalic Eyes: EOMI, PERRL, nl conjunctiva, nl lids ENMT: nl external ears & nose, nl lips & teeth, nl nasal mucosa & septum Neck: non-tender, supple Respiratory: clear to auscultation, normal air movement, No congested cough, No crackles/rales, No diminished breath sounds, No intercostal retraction, No labored breathing, No other, No respirations, No tactile fremitus, No wheezing Cardiovascular: nl pulses, regular rate and rhythm, No S3, No S4, No bruits, No diastolic murmur, No edema, No gallop, No irregular rhythm, No jugular venous distention (JVD), No murmurs/extra sounds, No other, No rub, No systolic murmur Gastrointestinal: nl liver, spleen, non-tender, soft, No ascites, No bowel sounds, No distended, No firm, No hepatomegaly, No mass , No other, No rebound or guarding, No splenomegaly, No surgical scars, No tender Musculoskeletal: other (left shoulder pain) Extremities: normal pulses, No calf tenderness, No clubbing, No cyanosis, No edema, No other, No palpable cord, No pitting pedal edema, No tenderness 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: 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8 H Lymphocytes # 1.7 Monocytes # 1.1 H Eosinophils # 0.4 Basophils # 0.0 Nucleated Red Blood Cells # 0.0 Prothrombin Time 20.6 #H Prothrombin Time Ratio 1.6 INR International Normalized Ratio 1.75 Sodium Level 134 L Potassium Level 3.7 Chloride Level 101 Carbon Dioxide Level 26 Anion Gap 11 Blood Urea Nitrogen 22 H Creatinine 0.81 Glucose Level 111 Calcium Level 8.7 Creatine Kinase 4715 #H Medications Medications Current Medications Ondansetron HCl (Zofran Inj) 4 mg Q6H PRN IV NAUSEA AND/OR VOMITING; Start at 14:30 Acetaminophen (Tylenol Tab) 650 mg Q6H PRN PO PAIN LEVEL 1-3 OR FEVER Last administered on 12/11/16 23:58; Admin Dose 650 MG; Start 12/10/16 at 14:30 Morphine Sulfate (morphine) 2 mg Q4H PRN IV SEVERE PAIN LEVEL 7-10 Last administered on 12/12/16 06:06; Admin Dose 2 MG; Start 12/10/16 at 14:30 Magnesium Hydroxide (Milk Of Mag) 30 ml DAILY PRN PO CONSTIPATION; Start at 14:30 Sodium Biphosphate/ Sodium Phosphate (Fleet Enema) 133 ml DAILY PRN RI CONSTIPATION; Start 12/10/16 at 14:30 Pantoprazole (Protonix Tab) 40 mg DAILY@06 PO Last administered on 12/13/16 05 :36; Admin Dose 40 MG; Start 12/11/16 at 06:00 Hydralazine HCl (Apresoline) 10 mg Q6H PRN IV ELEVATED BLOOD PRESSURE Last administered on 12/12/16 11:32; Admin Dose 10 MG; Start 12/10/16 at 14:30 Nitroglycerin (Nitroglycerin (Sl Tab) 0.4 Mg) 1 tab Q5M PRN SL ANGINA; Start at 14:30 Aspirin (Halfprin) 162 mg DAILY PO Last administered on 12/13/16 08:40; Admin Dose 162 MG; Start 12/11/16 at 09:00 Hydromorphone HCl (Dilaudid) 2 mg Q4H PRN IV PAIN Last administered on 12:16; Admin Dose 2 MG; Start 12/10/16 at 15:30 Lorazepam (Ativan) 1 mg Q1H PRN IV SEIZURES; Start 12/10/16 at 15:30 Levetiracetam 500 mg 500 mg BID PO Last administered on 12/13/16 08:40; Admin Dose 500 MG; Start 12/11/16 at 09:00 Ceftriaxone Sodium (Rocephin) 50 ml @ 100 mls/hr Q24H IVPB Last administered on 12/13/16 12:16; Admin Dose 100 MLS/HR; Start 12/11/16 at 11:00 Docusate Sodium (Colace) 100 mg Q12 PO Last administered on 12/13/16 08:40; Admin Dose 100 MG; Start 12/11/16 at 14:30 Oxycodone/ Acetaminophen 1 tab 1 tab Q6H PRN PO PAIN Last administered on 08:41; Admin Dose 1 TAB; Start 12/11/16 at 11:30 Sodium Chloride (NS) 1,000 ml @ 150 mls/hr Q6H40M IV Last administered on 12/13 10:30; Admin Dose 150 MLS/HR; Start 12/12/16 at 14:30 Metoprolol Tartrate (Lopressor) 25 mg BID PO Last administered on 12/13/16 08: 40; Admin Dose 25 MG; Start 12/12/16 at 17:00 Nifedipine (Procardia Xl) 30 mg BID PO Last administered on 12/13/16 08:40; Admin Dose 30 MG; Start 12/12/16 at 17:00 JOHN RAZO MD Dec 13, 2016 13:54
[2016-12-13] MEDS: DILTIAZEM (CD) 240 MG CAP PO SCH (17:33)
[2016-12-13] MEDS: WARFARIN 3 MG TAB PO SCH (18:30)
[2016-12-14] VITALS (8 sets, daily range): BP systolic 145–178; BP diastolic 73–87; PULSE 81–97; RESP 18
[2016-12-14] MEDS: ALBUTEROL HFA 8 GM INHALER INH PRN (00:53)
[2016-12-14] MEDS: hydrALAzine 20 MG INJ IV PRN (04:57)
[2016-12-14] MEDS: PANTOPRAZOLE (EC) 40 MG TAB PO SCH (05:20)
[2016-12-14] MEDS: SOD CHLORIDE 0.9% 1,000 ML IV SCH ×2 (06:30→13:10)
[2016-12-14 07:43] LABS: ADD SCAN DIFF NO
[2016-12-14 07:47] LABS: BASOPHILS % 0.3 % (0.0-2.0); EOSINOPHILS # 0.3 10^3/ul (0.0-0.5); EOSINOPHILS % 3.7 % (0.0-7.0); HEMATOCRIT 35.3 % (42.0-52.0); HEMOGLOBIN 11.8 g/dl (14.0-18.0); LYMPHOCYTES # 1.5 10^3/ul (0.8-2.9); LYMPHOCYTES % 16.8 % (15.0-51.0); MEAN CORPUSCULAR HEMOGLOBIN 30.2 pg (29.0-33.0); MEAN CORPUSCULAR HGB CONC 33.4 g/dl (32.0-37.0); MEAN CORPUSCULAR VOLUME 90.3 fl (82.0-101.0); MONOCYTE # 0.9 10^3/ul (0.3-0.9); MONOCYTES % 9.7 % (0.0-11.0); NEUTROPHIL # 6.3 10^3/ul (1.6-7.5); NEUTROPHILS % 69.2 % (39.0-77.0); PLATELET COUNT 311 10^3/UL (140-415); RED BLOOD COUNT 3.91 10^6/ul (4.70-6.10); RED CELL DISTRIBUTION WIDTH 14.8 % (11.5-14.5); WHITE BLOOD COUNT 9.1 10^3/ul (4.8-10.8)
[2016-12-14 07:55] LABS: INR 1.3; PROTIME 16.3 Sec (12.2-14.2); PT RATIO 1.3
[2016-12-14 08:01] LABS: CALCIUM 8.9 mg/dl (8.4-10.2); CREATININE 0.8 mg/dl (0.61-1.24); POTASSIUM 3.8 mmol/L (3.5-5.1)
[2016-12-14 08:25] LABS: CK-MB 0.73 ng/ml (0.0-2.4); TROPONIN-I < 0.012 ng/ml (0.00-0.12)
[2016-12-14] MEDS: DOCUSATE SODIUM 100 MG CAP PO SCH (08:35)
[2016-12-14] MEDS: ASPIRIN (EC) 81 MG TAB PO SCH (08:35)
[2016-12-14] MEDS: LEVETIRACETAM 500 MG TAB PO SCH (08:35)
[2016-12-14] MEDS: DILTIAZEM (CD) 240 MG CAP PO SCH (08:35)
[2016-12-14] MEDS: METOPROLOL 25 MG TAB PO SCH (08:36)
[2016-12-14] MEDS: HYDROmorphONE 2 MG/ML SYG IV PRN (09:08)
[2016-12-14 09:44] LABS: CREATINE KINASE 4352 IU/L (23-200)
[2016-12-14] MEDS: CEFTRIAXONE 1 GM/50 ML (PMX) 50 ML IVPB SCH (10:45)
[2016-12-14] MEDS ORDERED: OXYC-431 PO (16:01)
[2016-12-14] MEDS ORDERED: LEVE-5 PO (16:01)
--- NOTE | 2016-12-14 16:18 | DS ---
Date/Time of Note Date/Time of Note DATE: 12/14/16 TIME: 16:06 Discharge Summary Admission/Discharge Info Admit Date/Time Dec 12, 2016 at 16:48 Discharge Date/Time Final Diagnosis 1. Syncope, negative echo/carotid us, no recurrent 2. 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 Hypertension, resume cardizem 4. Seizure activity, neurology starts on keppra 5. Rhabdomyolysis due to fall, follow up with CPK 6. Left shoulder grade 3 acromioclavicular joint separation, on figure-of- eight clavicle brace per Dr. Beauchamp Patient Condition: Stable Hospital Course A 56-year-old male with past medical history of multiple DVTs in the past, nonfunctioning placed, chronic back pain from L4, L5, and S1 herniated disk disease, prior lower extremity cellulitis. He was brought in because of left shoulder pain and syncopal event. The patient went bathroom, then to walk back to his bed he noticed lightheadedness, then fell. He does not remember how long he was out. He hit his left shoulder and left side of his head. He lives in a complex and neighbors had heard him fall , called EMS. He denies leak of urine or stool. He said he may have had the seizure in the past years ago, but at this time he noticed he has bit at his upper lip and tongue mildly as well. Denied any chest pain or shortness of breath. No nausea or vomiting. No fevers or chills. There is no constipation. When he came in today, he had some imaging performed which showed injury to AC joint in shoulder. The patient was treated at [facility] back in late July or early August of this year for his lower extremity cellulitis. Patient states that he normally uses a cane at home to walk, but he left the cane at his brother's house a few months ago, has not have that available to use. Denies any prior history of any syncopal No recent changes to his medications. No history of any arrhythmias The patient came into the ER today. He was also found with an elevated INR of 4.0. No signs of any bleeding. For syncope work up, echocardiography, carotid ultrasound, CT head no acute changes. Patient is seen by neurologist. Seizure is diagnosed and patient is on keppra. Patient has diffuse bruises on both arms. Patient has left shoulder pain. X-ray findings suggestive of a grade 3 acromioclavicular joint separation. Patient is seen by Dr. Beauchamp who recommends [id number] clavicle brace. Patient has rhabdomyolysis with elevated CPK, from fall and trauma. No kidney injury. Patient will be continue on coumadin for protein S and protein C deficiency. Home Meds Active Scripts Levetiracetam* (Keppra*) 500 Mg Tablet, 500 MG PO BID for 30 Days, TAB Prov:JOHN RAZO MD 12/14/16 Oxycodone HCl/Acetaminophen (Oxycodone-Acetaminophen 10-325) 1 Each Tablet, 1 TAB PO Q6H Y for PAIN for 10 Days, TAB Prov:JOHN RAZO MD 12/14/16 Reported Medications Fentanyl Patch* (Duragesic Patch*) 12 Mcg/Hr Transdermal Patch, 1 PATCH TD Q72H , PATCH 50MCG PATCH 12/10/16 Albuterol Sulfate* (Proair HFA*) 8.5 Gm Hfa.aer.ad, 2 PUFF INH Q6H Y for WHEEZING AND SOB, #1 INHALER 12/10/16 Salmeterol Xinaf/Fluticasone* (Advair*) 250-50 Diskus Inhaler, 1 INH INHALATION BID, #1 INHALER 12/10/16 Tramadol Hcl* (Ultram*) 50 Mg Tablet, 50 MG PO BID Y for PAIN, TAB 12/10/16 Diltiazem Hcl* (Cardizem CD*) 240 Mg Cap.sr.24h, 240 MG PO DAILY, #30 CAP 12/10/16 Warfarin Sodium* (Coumadin*) 6 Mg Tablet, 6 MG PO DAILY, TAB 12/10/16 Follow-up Plan follow up with PCP in one week Ortho in one week Neurology in one week PCP in one week Pending Labs Laboratory Tests Test 12/14/16 06:58 White Blood Count 9.110^3/ul (4.8-10.8) Red Blood Count 3.9110^6/ul (4.70-6.10) Hemoglobin 11.8g/dl (14.0-18.0) Hematocrit 35.3% (42.0-52.0) Mean Corpuscular Volume 90.3fl (82.0-101.0) Mean Corpuscular Hemoglobin 30.2pg (29.0-33.0) Mean Corpuscular Hemoglobin Concent 33.4g/dl (32.0-37.0) Red Cell Distribution Width 14.8% (11.5-14.5) Platelet Count 43870^3/UL (140-415) Mean Platelet Volume 9.0fl (7.4-10.4) Neutrophils % 69.2% (39.0-77.0) Lymphocytes % 16.8% (15.0-51.0) Monocytes % 9.7% (0.0-11.0) Eosinophils % 3.7% (0.0-7.0) Basophils % 0.3% (0.0-2.0) Nucleated Red Blood Cells % 0.0/100WBC (0.0-0.0) Neutrophils # 6.310^3/ul (1.6-7.5) Lymphocytes # 1.510^3/ul (0.8-2.9) Monocytes # 0.910^3/ul (0.3-0.9) Eosinophils # 0.310^3/ul (0.0-0.5) Basophils # 0.010^3/ul (0.0-0.1) Nucleated Red Blood Cells # 0.010^3/ul (0.0-0.0) Prothrombin Time 16.3Sec (12.2-14.2) Prothrombin Time Ratio 1.3 INR International Normalized Ratio 1.30 Sodium Level 137mmol/L (135-144) Potassium Level 3.8mmol/L (3.5-5.1) Chloride Level 104mmol/L (97-110) Carbon Dioxide Level 26mmol/L (21-31) Anion Gap 11 (8-16) Blood Urea Nitrogen 20mg/dl (7-20) Creatinine 0.80mg/dl (0.61-1.24) Glucose Level 106mg/dl (70-220) Calcium Level 8.9mg/dl (8.4-10.2) Creatine Kinase 4352IU/L (23-200) Creatine Kinase Index 0.0 Creatinine Kinase MB (Mass) 0.73ng/ml (0.0-2.4) Troponin I < 0.012ng/ml (0.00-0.12) JOHN RAZO MD Dec 14, 2016 16:17
[2016-12-14] MEDS: WARFARIN 3 MG TAB PO SCH (17:11)
[2016-12-14] MEDS: OXYCODONE/ACETAMINOPHEN (10/325) TAB PO PRN (17:11)
--- NOTE | 2016-12-14 17:52 | RADRPT ---
PROCEDURE: US upper extremity Venous. CLINICAL INDICATION: Right arm swelling TECHNIQUE: Multiple sonographic images of the right upper extremity venous system was obtained uti lizing grayscale, color-flow, compressive sonography and doppler imaging with augmentation. The lindsay ges were reviewed on a PACS workstation. COMPARISON: None. FINDINGS: There is normal compressibility and flow within the right internal jugular vein, subclavian vein, ax illary vein, brachial, basilic, cephalic, radial and ulnar veins. RPTAT: AA IMPRESSION: No sonographic evidence for venous thrombosis. .Julito Gutiérrez MD, MD Date Time Electronically viewed and signed by .Julito Gutiérrez MD, on 12/14/2016 17:52 .S/
[2016-12-15] MEDS ORDERED: DILTIAZEM (CD) 180 MG CAP PO SCH (09:00)
== END 2016-12-14 19:48 | DRG 312 ==
LOC: E/R 09:30 → MS4 12:38 → INTOOBSV 12:38 → OBSVTOIN 12-12 16:48
PROVIDERS: ADMIT Hospitalist; ATTEND Hospitalist
PROC: 2W39X3Z Immobilization of Left Upper Extremity using Brace (ICD-10-PCS; principal; 2016-12-10)
DX: R55 Syncope and collapse (principal); M62.82 Rhabdomyolysis; D68.59 Other primary thrombophilia; R56.9 Unspecified convulsions; N39.0 Urinary tract infection, site not specified; I10 Essential (primary) hypertension; W18.30XA Fall on same level, unspecified, initial encounter; Y92.003 Bedroom of unspecified non-institutional (private) residence as the place of occurrence of the external cause; Z79.01 Long term (current) use of anticoagulants; Z86.718 Personal history of other venous thrombosis and embolism; S00.83XA Contusion of other part of head, initial encounter; S43.102A Unspecified dislocation of left acromioclavicular joint, initial encounter; S83.92XA Sprain of unspecified site of left knee, initial encounter; Z87.891 Personal history of nicotine dependence; J44.9 Chronic obstructive pulmonary disease, unspecified
CPT/HCPCS: 36415; 70450; 70551; 71010; 73030; 73562; 80048; 80053; 80061; 81001; 81003; 82550; 82553; 83036; 83735; 84100; 84439; 84443; 84484; 85025; 85610; 85730; 87086; 92610; 93005; 93306; 93880; 93971; 95819; 96374; 96375; 96376; 97116; 97530; 99217; G0378; J0360; J0696; J1170; J2270; J2405; J7030

== ENCOUNTER 2016-12-13 13:22 | Inpatient (IN) | payer MEDICARE, BC ==
[~2016-12-13] VITALS: Ht 188 cm; Wt 110.0 kg
[~2016-12-13 13:22] MED LIST: ADV25050 INHALATION; ALBU8.5H3 INH; DILT240C79 PO; FENT1PAT7 TD; TRAM-40 PO; WARF6TAB PO
[2016-12-14] MEDS ORDERED: LEVE-5 PO (16:01)
[2016-12-14] MEDS ORDERED: OXYC-431 PO (16:01)
[2016-12-14 21:11] VITALS: Ht 188 cm; Wt 110.0 kg
[2016-12-14] MEDS: ALBUTEROL/IPRATROPIUM (NEB) 3 ML AMP HHN SCH (21:51)
[2016-12-14] MEDS: ALBUTEROL 18 GM INHALER INH SCH (21:52)
[2016-12-14 22:00] VITALS: BP 158/73; PULSE 78
[2016-12-14] MEDS ORDERED: NACL 0.9% 3 ML SYG IV SCH (22:00)
[2016-12-14] MEDS ORDERED: NA PHOSPHATE/BIPHOS 133 ML ENEMA PR PRN (22:00)
[2016-12-14] MEDS ORDERED: hydrALAzine 20 MG INJ IV PRN (22:00)
[2016-12-14] MEDS ORDERED: NITROGLYCERIN (SL) 0.4 MG TAB SL PRN (22:00)
[2016-12-14] MEDS ORDERED: morphine 2 MG INJ IV PRN (22:00)
[2016-12-14] MEDS ORDERED: ONDANSETRON 4 MG INJ IV PRN (22:00)
[2016-12-14] MEDS ORDERED: MAGNESIUM HYDROXIDE 30ML CUP PO PRN (22:00)
[2016-12-14] MEDS: DOCUSATE SODIUM 100 MG CAP PO SCH (22:08)
[2016-12-14] MEDS: LEVETIRACETAM 500 MG TAB PO SCH (22:08)
[2016-12-14] MEDS: METOPROLOL 25 MG TAB PO SCH (22:12)
[2016-12-14] MEDS: HYDROmorphONE 2 MG/ML SYG IV PRN (22:14)
[2016-12-14] MEDS: SOD CHLORIDE 0.9% 1,000 ML IV SCH (22:21)
[2016-12-14 23:13] LABS: ADD UMIC NO; URINE BILIRUBIN (Dip) NEGATIVE (NEGATIVE); URINE BLOOD (Dip) NEGATIVE (NEGATIVE); URINE COLOR LT. YELLOW (YELLOW); URINE GLUCOSE (Dip) NEGATIVE (NEGATIVE); URINE KETONES (Dip) NEGATIVE (NEGATIVE); URINE LEUKOCYTE ESTERASE (Dip) NEGATIVE (NEGATIVE); URINE NITRITE (Dip) NEGATIVE (NEGATIVE); URINE TOTAL PROTEIN (Dip) NEGATIVE (NEGATIVE); URINE UROBILINOGEN (Dip) 2.0 E.U./dL (0.1-1.0)
[2016-12-14] MEDS ORDERED: BISACODYL 10 MG SUPP PR PRN (23:45)
[2016-12-14] MEDS ORDERED: LACTULOSE 30ML CUP PO PRN (23:45)
[2016-12-15] MEDS ORDERED: ZOLPIDEM 5 MG TAB PO PRN ×2 (00:39→01:00)
[2016-12-15] MEDS: TEMAZEPAM 15 MG CAP PO PRN ×2 (00:52→23:27)
[2016-12-15] MEDS: ALBUTEROL/IPRATROPIUM (NEB) 3 ML AMP HHN SCH ×6 (01:41→22:17)
[2016-12-15] MEDS: ALBUTEROL 18 GM INHALER INH SCH ×4 (03:00→20:17)
[2016-12-15] MEDS: PANTOPRAZOLE (EC) 40 MG TAB PO SCH (06:30)
[2016-12-15 06:48] LABS: ADD SCAN DIFF NO
[2016-12-15 07:00] LABS: BASOPHILS % 0.2 % (0.0-2.0); EOSINOPHILS # 0.2 10^3/ul (0.0-0.5); EOSINOPHILS % 2.2 % (0.0-7.0); HEMATOCRIT 32.9 % (42.0-52.0); HEMOGLOBIN 11.2 g/dl (14.0-18.0); LYMPHOCYTES # 1.5 10^3/ul (0.8-2.9); LYMPHOCYTES % 17.1 % (15.0-51.0); MEAN CORPUSCULAR HEMOGLOBIN 30.8 pg (29.0-33.0); MEAN CORPUSCULAR VOLUME 90.4 fl (82.0-101.0); MONOCYTE # 1.1 10^3/ul (0.3-0.9); MONOCYTES % 12.1 % (0.0-11.0); NEUTROPHIL # 6.1 10^3/ul (1.6-7.5); PLATELET COUNT 315 10^3/UL (140-415); RED BLOOD COUNT 3.64 10^6/ul (4.70-6.10); RED CELL DISTRIBUTION WIDTH 14.8 % (11.5-14.5)
[2016-12-15 07:46] LABS: ALBUMIN 3.5 g/dl (3.3-4.9); ALBUMIN/GLOBULIN RATIO 1.16; BILIRUBIN,INDIRECT 0.8 mg/dl (0-1.1); BILIRUBIN,TOTAL 0.8 mg/dl (0.2-1.3); CALCIUM 8.9 mg/dl (8.4-10.2); CREATININE 0.76 mg/dl (0.61-1.24); POTASSIUM 3.8 mmol/L (3.5-5.1); TOTAL PROTEIN 6.5 g/dl (6.1-8.1)
[2016-12-15] MEDS: HYDROmorphONE 2 MG/ML SYG IV PRN (07:49)
[2016-12-15 07:55] VITALS: BP 173/88; RESP 18
[2016-12-15] MEDS: DOCUSATE SODIUM 100 MG CAP PO SCH ×2 (09:02→20:10)
[2016-12-15] MEDS: DILTIAZEM (CD) 180 MG CAP PO SCH (09:02)
[2016-12-15] MEDS: ASPIRIN (EC) 81 MG TAB PO SCH (09:02)
[2016-12-15] MEDS: METOPROLOL 25 MG TAB PO SCH ×2 (09:03→20:10)
[2016-12-15] MEDS: LEVETIRACETAM 500 MG TAB PO SCH ×2 (09:03→20:10)
[2016-12-15] MEDS: OXYCODONE/ACETAMINOPHEN (10/325) TAB PO PRN (10:46)
[2016-12-15] MEDS: SOD CHLORIDE 0.9% 1,000 ML IV SCH (11:20)
--- NOTE | 2016-12-15 12:12 | CONS ---
DATE OF ADMISSION: 12/14/2016 DATE OF CONSULTATION: REHABILITATION POST-ADMISSION PHYSICIAN EVALUATION REHABILITATION IMPAIRMENT CATEGORY: Status post fall with blunt head trauma including loss of consciousness, seizure activity, bilateral upper extremity contusions, and AC joint separation. ACTIVE COMORBIDITIES: 1. History of recurrent deep vein thrombosis and pulmonary embolism. 2. Protein S and C deficiency. 3. Chronic low back pain with degenerative disk disease. 4. Asthma. 5. Hypertension. 6. Impairments in self-care, mobility and cognition HISTORY OF PRESENT ILLNESS: The patient is a left handed 56-year-old gentleman with a history of multiple medical comorbidities, who is status post a syncopal episode with resultant head and shoulder trauma. The patient reports walking from the bathroom becoming lightheaded, falling with loss of consciousness. He does have evidence of facial trauma with facial ecchymoses. Neighbors had heard the fall and the patient was brought to the emergency room. The patient was noted to have a grade III acromioclavicular joint separation, bilateral upper extremity contusions, and right periorbital facial ecchymoses. Neurology was consulted and the patient was started on Keppra for possible seizure activity. The patient has notable significant impairments in self-care and mobility as compared to baseline, and has been cleared to transfer to the rehabilitation unit for comprehensive interdisciplinary rehab care. FUNCTIONAL HISTORY: Prior to recent events, he was independent in self-care tasks and mobility. Currently, he requires maximal assist for self-care activities and moderate assist for mobility tasks. I have reviewed the preadmission screen and the patient's current functional status is consistent with the preadmission screen. SOCIAL HISTORY: The patient lives at home in a second floor apartment and hopes to return there upon discharge. PAST MEDICAL HISTORY: 1. Asthma. 2. Hypertension. 3. History of multiple DVTs. 4. History of protein S and C deficiency. 5. History of chronic low back pain with degenerative disk disease. CURRENT MEDICATIONS: 1. Restoril 30 mg p.o. at bedtime. 2. Albuterol inhaler. 3. Aspirin 162 mg p.o. daily. 4. Cardizem-CD 360 p.o. daily. 5. Colace p.r.n. 6. Dilaudid p.r.n. 7. Ativan p.r.n. 8. Lopressor 25 mg p.o. b.i.d. 9. Endocet p.r.n. 10. Coumadin dose adjusted. ALLERGIES: THE PATIENT WITH NO KNOWN DRUG ALLERGIES. PHYSICAL EXAMINATION: VITAL SIGNS: The patient is currently afebrile with stable vital signs. HEENT: The extraocular motions are intact. Oropharynx clear. NECK: Supple. LUNGS: Clear anteriorly. CARDIAC: S1, S2. ABDOMEN: Soft, nontender, positive bowel sounds. NEUROLOGIC: He is awake and alert and oriented x3. He will follow simple 1- step commands. He does have impaired short-term memory. He demonstrates antigravity strength in the right upper extremity and bilateral lower extremities. Sling in place in the left upper extremity. The patient is able to wiggle fingers. PLAN: The patient has been admitted for comprehensive interdisciplinary acute rehab and is anticipated to tolerate 3 hours of daily therapy in divided doses for at least 5/7 days a week. The treatment plan will include: 1. Physical therapy to focus on bed mobility, transfers, and household ambulation with the goal of having the patient reach a standby assist level. 2. Occupational therapy to focus on hygiene, grooming, dressing, bathing, and toileting activities with goal of having patient reach standby assist level. 3. Speech Therapy for cognitive and safety awareness retraining with goal of returning to baseline cognition, and patient education. 4. Rehabilitation nursing for carryover of therapeutic interventions, the goal of continent of bowel and bladder, and the goal of pain adequately managed on oral medications. REHABILITATION BARRIER: Pain. INTERVENTION FOR BARRIER: Comprehensive interdisciplinary approach. ESTIMATED LENGTH OF STAY: 10 days. DISPOSITION GOAL: Home. I acknowledge that I performed a full physical examination on this patient within 24 hours of admission to the rehabilitation unit. I believe the patient is a good candidate for comprehensive interdisciplinary rehab care and is anticipated to make reasonable goals in a reasonable period of time as outlined above. Dictated By: SAMAN QUINN/ANT Conf#: [id number] DID#: [id number]
[2016-12-15] MEDS: HYDROmorphONE 1 MG/ML SYG IV PRN ×3 (12:40→20:11)
[2016-12-15] MEDS: WARFARIN 3 MG TAB PO SCH (17:15)
[2016-12-15] MEDS: LORAZEPAM 2 MG INJ IV PRN ×2 (18:42→22:29)
[2016-12-15 20:06] VITALS: BP 144/82; RESP 18
[2016-12-15] MEDS: SENNA TAB PO SCH (20:10)
[2016-12-16] MEDS: ALBUTEROL/IPRATROPIUM (NEB) 3 ML AMP HHN SCH ×3 (01:00→09:00)
[2016-12-16] MEDS: ALBUTEROL 18 GM INHALER INH SCH ×4 (02:00→20:00)
[2016-12-16] MEDS: PANTOPRAZOLE (EC) 40 MG TAB PO SCH ×2 (06:00→06:57)
[2016-12-16] MEDS: HYDROmorphONE 1 MG/ML SYG IV PRN ×5 (07:02→22:31)
[2016-12-16 08:08] LABS: INR 1.28; PROTIME 16.1 Sec (12.2-14.2); PT RATIO 1.3
[2016-12-16] MEDS: LEVETIRACETAM 500 MG TAB PO SCH ×2 (08:21→20:01)
[2016-12-16] MEDS: DOCUSATE SODIUM 100 MG CAP PO SCH ×3 (08:22→20:01)
[2016-12-16] MEDS: ASPIRIN (EC) 81 MG TAB PO SCH (08:22)
[2016-12-16] MEDS: METOPROLOL 25 MG TAB PO SCH ×2 (08:22→20:01)
[2016-12-16] MEDS: DILTIAZEM (CD) 180 MG CAP PO SCH (08:22)
[2016-12-16] MEDS: ACETAMINOPHEN 325 MG TAB PO PRN (08:28)
--- NOTE | 2016-12-16 09:10 | CONS ---
Date/Time of Note Date/Time of Note DATE: 12/16/16 TIME: 09:10 Consult Date/Type/Reason Admit Date/Time Dec 14, 2016 at 20:00 Initial Consult Date Subjective complaint of pain Objective pulm-cta abd-soft Vital Signs Date Time Temp Pulse Resp B/P Pulse Ox O2 Delivery O2 Flow Rate FiO2 12/15/16 22:20 90 20 98 21 12/15/16 20:06 98.6 144/82 Intake and Output 12/15/16 12/15/16 12/16/16 14:59 22:59 06:59 Intake Total 720 ml 960 ml 590 ml Output Total 1550 ml 900 ml 400 ml Balance -830 ml 60 ml 190 ml Results/Medications Result Diagram: 12/15/16 0600 12/15/16 0600 Results 24 hrs Laboratory Tests Test 12/16/16 07:15 Prothrombin Time 16.1 H Prothrombin Time Ratio 1.3 INR International Normalized Ratio 1.28 Medications Current Medications Nitroglycerin (Nitroglycerin (Sl Tab) 0.4 Mg) 1 tab Q5M PRN SL CHEST PAIN; Start 12/14/16 at 22:00 Ondansetron HCl (Zofran Inj) 4 mg Q6H PRN IV NAUSEA AND/OR VOMITING; Start at 22:00 Oxycodone/ Acetaminophen (Endocet (10/ 325)) 1 tab Q6H PRN PO PAIN Last administered on 12/15/16 10:46; Admin Dose 1 TAB; Start 12/14/16 at 22:00 Pantoprazole (Protonix Tab) 40 mg DAILY@06 PO Last administered on 12/16/16 06 :57; Admin Dose 40 MG; Start 12/15/16 at 06:00 Sodium Biphosphate/ Sodium Phosphate (Fleet Enema) 133 ml DAILY PRN [place] CONSTIPATION; Start 12/14/16 at 22:00 Warfarin Sodium (Coumadin) 6 mg DAILY@17 PO Last administered on 12/15/16 17: 15; Admin Dose 6 MG; Start 12/15/16 at 17:00 Levetiracetam (Keppra) 500 mg BID PO Last administered on 12/16/16 08:21; Admin Dose 500 MG; Start 12/14/16 at 21:48 Lorazepam (Ativan) 1 mg Q1H PRN IV SEIZURES Last administered on 12/15/16 22: 29; Admin Dose 1 MG; Start 12/14/16 at 22:00 Magnesium Hydroxide (Milk Of Mag) 30 ml DAILY PRN PO CONSTIPATION; Start at 22:00 Metoprolol Tartrate (Lopressor) 25 mg BID PO Last administered on 12/16/16 08: 22; Admin Dose 25 MG; Start 12/14/16 at 21:50 Acetaminophen (Tylenol Tab) 650 mg Q6H PRN PO PAIN AND OR ELEVATED TEMP Last administered on 12/16/16 08:28; Admin Dose 650 MG; Start 12/14/16 at 22:00 Aspirin (Halfprin) 162 mg DAILY PO Last administered on 12/16/16 08:22; Admin Dose 162 MG; Start 12/15/16 at 09:00 Diltiazem HCl (Cardizem Cd) 360 mg DAILY PO Last administered on 12/16/16 08: 22; Admin Dose 360 MG; Start 12/15/16 at 09:00 Hydralazine HCl (Apresoline) 10 mg Q6H PRN IV SBP > 160; Start 12/14/16 at 22: 00 Senna (Senokot) 1 tab HS PO Last administered on 12/15/16 20:10; Admin Dose 1 TAB; Start 12/15/16 at 21:00 Bisacodyl (Dulcolax Supp) 10 mg DAILY PRN [place] CONSTIPATION; Start 12/14/16 at 23 :45 Lactulose (Enulose) 20 gm DAILY PRN PO CONSTIPATION; Start 12/14/16 at 23:45 Temazepam (Restoril) 30 mg HS PRN PO INSOMNIA Last administered on 12/15/16 23 :27; Admin Dose 30 MG; Start 12/15/16 at 00:43 Hydromorphone HCl (Dilaudid) 1 mg Q3 PRN IV PAIN Last administered on 07:02; Admin Dose 1 MG; Start 12/15/16 at 12:00 Docusate Sodium (Colace) 100 mg TID PO ; Start 12/16/16 at 13:00; Status UNV Lorazepam (Ativan) 1 mg BID PRN IV anxiety; Start 12/16/16 at 09:30; Status UNV Assessment/Plan Additional Assessment/Plan Rehab- Status post fall with blunt head trauma including loss of consciousness, seizure activity, bilateral upper extremity contusions, and AC joint separation. Continue activities as tolerated 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 Chronic low back pain with degenerative disk disease. Asthma. Hypertension. Pain- adjust pain meds SAMAN RUFFIN MD Dec 16, 2016 09:10
[2016-12-16] MEDS: LORAZEPAM 2 MG INJ IV PRN ×2 (09:25→15:41)
[2016-12-16] MEDS ORDERED: ALBUTEROL 0.083% (NEB) 2.5 MG/3 ML AMP HHN PRN (10:30)
[2016-12-16 16:00] VITALS: BP 135/82; PULSE 80; RESP 20
[2016-12-16] MEDS: OXYCODONE/ACETAMINOPHEN (10/325) TAB PO PRN (16:48)
[2016-12-16] MEDS: WARFARIN 3 MG TAB PO SCH (16:48)
[2016-12-16 19:52] VITALS: BP 147/70; RESP 18
[2016-12-16] MEDS: SENNA TAB PO SCH (20:01)
[2016-12-16] MEDS: TEMAZEPAM 15 MG CAP PO PRN (21:29)
[2016-12-16] MEDS ORDERED: COLLAGENASE 30 GM TUBE TOP PRN (22:30)
[2016-12-16] MEDS ORDERED: PENDING SANTYL ORDER FOR WOUND CARE XX PRN (22:30)
[2016-12-17] MEDS: HYDROmorphONE 1 MG/ML SYG IV PRN ×9 (01:31→23:06)
[2016-12-17] MEDS: ACETAMINOPHEN 325 MG TAB PO PRN (02:06)
[2016-12-17] MEDS: ALBUTEROL 18 GM INHALER INH SCH ×4 (02:07→23:09)
[2016-12-17] MEDS: PANTOPRAZOLE (EC) 40 MG TAB PO SCH (06:20)
[2016-12-17 08:00] VITALS: BP 140/90; RESP 20
[2016-12-17] MEDS: LORAZEPAM 2 MG INJ IV PRN ×2 (08:19→19:51)
[2016-12-17] MEDS: OXYCODONE/ACETAMINOPHEN (10/325) TAB PO PRN ×3 (08:40→22:36)
[2016-12-17] MEDS: DOCUSATE SODIUM 100 MG CAP PO SCH ×3 (08:40→21:05)
[2016-12-17] MEDS: LEVETIRACETAM 500 MG TAB PO SCH ×2 (08:40→21:05)
[2016-12-17] MEDS: DILTIAZEM (CD) 180 MG CAP PO SCH (08:40)
[2016-12-17] MEDS: ASPIRIN (EC) 81 MG TAB PO SCH (08:41)
[2016-12-17] MEDS: METOPROLOL 25 MG TAB PO SCH ×2 (08:41→21:06)
[2016-12-17 10:38] LABS: INR 1.27; PT RATIO 1.3
[2016-12-17] MEDS: COLLAGENASE 30 GM TUBE TOP SCH (15:02)
--- NOTE | 2016-12-17 15:25 | CONS ---
Date/Time of Note Date/Time of Note DATE: 12/17/16 TIME: 15:21 Consult Date/Type/Reason Admit Date/Time Dec 14, 2016 at 20:00 Initial Consult Date Subjective c/o pain LUE. Not adequately relieved with current narcotics. Objective Vital Signs Date Time Temp Pulse Resp B/P Pulse Ox O2 Delivery O2 Flow Rate FiO2 12/17/16 08:00 98.0 20 140/90 95 Room Air 12/16/16 19:52 88 12/15/16 22:20 21 Intake and Output 12/16/16 12/16/16 12/17/16 15:00 23:00 07:00 Intake Total 1400 ml 250 ml Output Total 1300 ml 1050 ml 1300 ml Balance -1300 ml 350 ml -1050 ml Exam HEENT: Neck supple; no JVD; no LAD CVS: RRR, S1 and S2 CHEST: Clear ABD: Soft, NT, + BS EXT: ++LUE swelling with bruising Results/Medications Result Diagram: 12/15/16 0600 12/15/16 0600 Results 24 hrs Laboratory Tests Test 12/17/16 09:34 Prothrombin Time 16.0 H Prothrombin Time Ratio 1.3 INR International Normalized Ratio 1.27 Medications Current Medications Nitroglycerin (Nitroglycerin (Sl Tab) 0.4 Mg) 1 tab Q5M PRN SL CHEST PAIN; Start 12/14/16 at 22:00 Ondansetron HCl (Zofran Inj) 4 mg Q6H PRN IV NAUSEA AND/OR VOMITING; Start at 22:00 Oxycodone/ Acetaminophen (Endocet (10/ 325)) 1 tab Q6H PRN PO PAIN Last administered on 12/17/16 14:11; Admin Dose 1 TAB; Start 12/14/16 at 22:00 Pantoprazole (Protonix Tab) 40 mg DAILY@06 PO Last administered on 12/17/16 06 :20; Admin Dose 40 MG; Start 12/15/16 at 06:00 Sodium Biphosphate/ Sodium Phosphate (Fleet Enema) 133 ml DAILY PRN [place] CONSTIPATION; Start 12/14/16 at 22:00 Warfarin Sodium (Coumadin) 6 mg DAILY@17 PO Last administered on 12/16/16 16: 48; Admin Dose 6 MG; Start 12/15/16 at 17:00 Levetiracetam (Keppra) 500 mg BID PO Last administered on 12/17/16 08:40; Admin Dose 500 MG; Start 12/14/16 at 21:48 Lorazepam (Ativan) 1 mg Q1H PRN IV SEIZURES Last administered on 12/16/16 15: 41; Admin Dose 1 MG; Start 12/14/16 at 22:00 Magnesium Hydroxide (Milk Of Mag) 30 ml DAILY PRN PO CONSTIPATION; Start at 22:00 Metoprolol Tartrate (Lopressor) 25 mg BID PO Last administered on 12/17/16 08: 41; Admin Dose 25 MG; Start 12/14/16 at 21:50 Acetaminophen (Tylenol Tab) 650 mg Q6H PRN PO PAIN AND OR ELEVATED TEMP Last administered on 12/17/16 02:06; Admin Dose 650 MG; Start 12/14/16 at 22:00 Aspirin (Halfprin) 162 mg DAILY PO Last administered on 12/17/16 08:41; Admin Dose 162 MG; Start 12/15/16 at 09:00 Diltiazem HCl (Cardizem Cd) 360 mg DAILY PO Last administered on 12/17/16 08: 40; Admin Dose 360 MG; Start 12/15/16 at 09:00 Hydralazine HCl (Apresoline) 10 mg Q6H PRN IV SBP > 160; Start 12/14/16 at 22: 00 Senna (Senokot) 1 tab HS PO Last administered on 12/16/16 20:01; Admin Dose 1 TAB; Start 12/15/16 at 21:00 Bisacodyl (Dulcolax Supp) 10 mg DAILY PRN [place] CONSTIPATION; Start 12/14/16 at 23 :45 Lactulose (Enulose) 20 gm DAILY PRN PO CONSTIPATION; Start 12/14/16 at 23:45 Temazepam (Restoril) 30 mg HS PRN PO INSOMNIA Last administered on 12/16/16 21 :29; Admin Dose 30 MG; Start 12/15/16 at 00:43 Hydromorphone HCl (Dilaudid) 1 mg Q3 PRN IV PAIN Last administered on 15:01; Admin Dose 1 MG; Start 12/15/16 at 12:00 Docusate Sodium (Colace) 100 mg TID PO Last administered on 12/17/16 12:27; Admin Dose 100 MG; Start 12/16/16 at 13:00 Lorazepam (Ativan) 1 mg BID PRN IV anxiety Last administered on 12/17/16 08:19 ; Admin Dose 1 MG; Start 12/16/16 at 09:30 Collagenase (Santyl) 1 applic DAILY TOP Last administered on 12/17/16 15:02; Admin Dose 1 APPLIC; Start 12/17/16 at 09:00 Collagenase (Santyl) 1 applic DAILY PRN TOP WHEN SOILED; Start 12/16/16 at 22: 30 Miscellaneous Information (Pending Santyl Order For Wound Care) This patient ellis... PRN PRN XX WOUND CARE; Start 12/16/16 at 22:30 Assessment/Plan Additional Assessment/Plan IMP: 1. s/p Fall with trauma 2. LUE swelling s/p fall. ? concern for DVT 3. History of recurrent deep vein thrombosis and pulmonary embolism- s/p IVC filter on lifelong anticoagulation . 4. Protein S and C deficiency. 5. Chronic low back pain with degenerative disk disease. PLAN: 1. Change dilaudid to 1 mg IV q2 2. Obtain LUE U/S 3. Am labs; INR MAGGY NOBLE MD Dec 17, 2016 15:25
[2016-12-17] MEDS ORDERED: ENOXAPARIN 60 MG/0.6 ML SYG SC ONE (15:30)
[2016-12-17] MEDS ORDERED: CYANOCOBALAMIN 1000 MCG INJ IM SCH (17:00)
[2016-12-17] MEDS: WARFARIN 3 MG TAB PO SCH (17:18)
[2016-12-17] MEDS: ENOXAPARIN 80 MG/0.8 ML SYG SC SCH (18:10)
[2016-12-17 19:08] VITALS: BP 143/80; RESP 20
[2016-12-17] MEDS: SENNA TAB PO SCH (21:06)
[2016-12-17] MEDS: TEMAZEPAM 15 MG CAP PO PRN (21:09)
--- NOTE | 2016-12-17 21:25 | RADRPT ---
PROCEDURE: US upper extremity Venous. CLINICAL INDICATION: Left arm swelling TECHNIQUE: Multiple sonographic images of the left upper extremity venous system was obtained util izing grayscale, color-flow, compressive sonography and doppler imaging with augmentation. The imag es were reviewed on a PACS workstation. COMPARISON: None. FINDINGS: There is normal compressibility and flow within the left internal jugular vein, subclavian vein, axi llary vein, brachial, basilic, cephalic, radial veins. The left ulnar vein was not seen. RPTAT: AA IMPRESSION: No sonographic evidence for venous thrombosis. .Julito Gutiérrez MD, MD Date Time Electronically viewed and signed by .Julito Gutiérrez MD, MD on 12/17/2016 21:24 .S/
[2016-12-18] MEDS: HYDROmorphONE 1 MG/ML SYG IV PRN ×10 (01:00→22:14)
[2016-12-18] MEDS: ALBUTEROL 18 GM INHALER INH SCH ×4 (01:02→20:05)
[2016-12-18] MEDS: PANTOPRAZOLE (EC) 40 MG TAB PO SCH (05:02)
[2016-12-18] MEDS: ACETAMINOPHEN 325 MG TAB PO PRN (05:07)
[2016-12-18] MEDS: OXYCODONE/ACETAMINOPHEN (10/325) TAB PO PRN ×2 (06:11→08:24)
[2016-12-18 07:16] LABS: ADD SCAN DIFF NO
[2016-12-18 07:24] LABS: BASOPHILS % 0.4 % (0.0-2.0); EOSINOPHILS # 0.5 10^3/ul (0.0-0.5); EOSINOPHILS % 5.5 % (0.0-7.0); HEMATOCRIT 33.3 % (42.0-52.0); HEMOGLOBIN 11.1 g/dl (14.0-18.0); LYMPHOCYTES # 1.7 10^3/ul (0.8-2.9); LYMPHOCYTES % 16.7 % (15.0-51.0); MEAN CORPUSCULAR HEMOGLOBIN 30.3 pg (29.0-33.0); MEAN CORPUSCULAR HGB CONC 33.3 g/dl (32.0-37.0); MEAN PLATELET VOLUME 9.1 fl (7.4-10.4); MONOCYTE # 0.8 10^3/ul (0.3-0.9); MONOCYTES % 8.4 % (0.0-11.0); NEUTROPHIL # 6.8 10^3/ul (1.6-7.5); NEUTROPHILS % 68.6 % (39.0-77.0); PLATELET COUNT 434 10^3/UL (140-415); RED BLOOD COUNT 3.66 10^6/ul (4.70-6.10); RED CELL DISTRIBUTION WIDTH 14.3 % (11.5-14.5); WHITE BLOOD COUNT 9.9 10^3/ul (4.8-10.8)
[2016-12-18 07:30] VITALS: BP 132/73; RESP 18
[2016-12-18 07:42] LABS: INR 1.23; PROTIME 15.6 Sec (12.2-14.2); PT RATIO 1.2
--- NOTE | 2016-12-18 07:56 | CONS ---
DATE OF ADMISSION: 12/14/2016 DATE OF CONSULTATION: 12/15/2016 REASON FOR ADMISSION: Continuing rehab therapy. HISTORY OF PRESENT ILLNESS: This is a 56-year-old gentleman with multiple medical problems includin g history of protein C, protein S deficiency, and asthma who came in with a mechanical fall sustaini ng acromioclavicular joint dislocation injury. Patient had neurological evaluation for syncopal epi sode, was found to have no significant abnormalities including normal MRI, CT brain and lower extrem ity Dopplers that were negative for deep vein thrombosis. The patient subsequently transferred to a [facility] rehab facility for continuing care. PAST MEDICAL HISTORY: Includes, 1. Protein C and protein S deficiency with DVT and PE in the past. 2. Hypertension. 3. Hyperlipidemia. 4. Seizure disorder. 5. Recent rhabdomyolysis. 6. Left grade 3 shoulder AC joint separation managed conservatively by Dr. Beauchamp. MEDICATIONS: Per chart. ALLERGIES: NONE. SOCIAL HISTORY: He is a nonsmoker, no alcohol, no history of drug use. FAMILY HISTORY: Noncontributory. SYSTEMS REVIEW: A 12-point review of systems was negative other than that mentioned above. PHYSICAL EXAMINATION: GENERAL: Well-nourished, well-developed gentleman, comfortable at rest, no acute distress. VITAL SIGNS: Currently afebrile, pulse is 80, blood pressure 159/70, O2 saturation 96% on room air. NECK: Supple. No JVD or lymphadenopathy. CARDIAC: S1, S2, no added sounds or murmurs. CHEST: Diminished air entry bilaterally. ABDOMEN: Soft, nontender. No guarding or rebound. EXTREMITIES: No cyanosis, clubbing, edema. NEUROLOGIC: Generalized weakness. LABORATORY DATA: White count 9.1, hemoglobin 11.8, INR 1.3. Creatine kinase 4352. BUN 20, creatin ine 0.8. IMPRESSION AND PLAN: 1. Recent fall, questionable seizure, now on antiepileptic medication. 2. Acromioclavicular joint injury. 3. 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 4. History of hypertension. The patient will require, 1. Continue anticoagulation. 2. Physical therapy. 3. Pain control. 4. Incentive spirometry. 5. DVT and GI prophylaxis. Dictated By: EAN HERNANDEZ MD SV/ANT Conf#: [id number] [facility]#: [id number]
[2016-12-18] MEDS: LEVETIRACETAM 500 MG TAB PO SCH ×2 (08:23→20:05)
[2016-12-18] MEDS: DOCUSATE SODIUM 100 MG CAP PO SCH ×3 (08:23→20:05)
[2016-12-18] MEDS: METOPROLOL 25 MG TAB PO SCH ×2 (08:24→20:06)
[2016-12-18] MEDS: ASPIRIN (EC) 81 MG TAB PO SCH (08:24)
[2016-12-18] MEDS: DILTIAZEM (CD) 180 MG CAP PO SCH ×2 (09:00→15:09)
[2016-12-18] MEDS: COLLAGENASE 30 GM TUBE TOP SCH (09:00)
--- NOTE | 2016-12-18 09:36 | CONS ---
Date/Time of Note Date/Time of Note DATE: 12/18/16 TIME: 09:36 Consult Date/Type/Reason Admit Date/Time Dec 14, 2016 at 20:00 Objective Vital Signs Date Time Temp Pulse Resp B/P Pulse Ox O2 Delivery O2 Flow Rate FiO2 12/18/16 07:30 97.4 88 18 132/73 95 12/17/16 08:00 Room Air 12/15/16 22:20 21 Intake and Output 12/17/16 12/17/16 12/18/16 15:00 23:00 07:00 Intake Total 500 ml 360 ml Output Total 800 ml Balance 500 ml -440 ml INTERDISCIPLINARY TEAM CONFERENCE BOWEL- Cont BLADDER-Cont SKIN- multiple UE echymosis and skin tears OT- DRESSING-min/mod BATHING-min/mod TOILETING-min/mod PT- BED MOBILITY-cga TRANSFERS-cga AMBULATION-min 75 feet SPEECH- COGNITION-ME A/P- Interdisciplinary team conference held today. Please see interdisciplinary sheet. Working toward d.c. on 12/22 with post discharge follow up of physical therapy, occupational therapy. Results/Medications Result Diagram: 12/18/16 0550 12/15/16 0600 Results 24 hrs Laboratory Tests Test 12/18/16 05:50 White Blood Count 9.9 Red Blood Count 3.66 L Hemoglobin 11.1 L Hematocrit 33.3 L Mean Corpuscular Volume 91.0 Mean Corpuscular Hemoglobin 30.3 Mean Corpuscular Hemoglobin Concent 33.3 Red Cell Distribution Width 14.3 Platelet Count 434 #H Mean Platelet Volume 9.1 Neutrophils % 68.6 Lymphocytes % 16.7 Monocytes % 8.4 Eosinophils % 5.5 Basophils % 0.4 Nucleated Red Blood Cells % 0.0 Neutrophils # 6.8 Lymphocytes # 1.7 Monocytes # 0.8 Eosinophils # 0.5 Basophils # 0.0 Nucleated Red Blood Cells # 0.0 Prothrombin Time 15.6 H Prothrombin Time Ratio 1.2 INR International Normalized Ratio 1.23 Medications Current Medications Nitroglycerin (Nitroglycerin (Sl Tab) 0.4 Mg) 1 tab Q5M PRN SL CHEST PAIN; Start 12/14/16 at 22:00 Ondansetron HCl (Zofran Inj) 4 mg Q6H PRN IV NAUSEA AND/OR VOMITING; Start at 22:00 Pantoprazole (Protonix Tab) 40 mg DAILY@06 PO Last administered on 12/18/16 05 :02; Admin Dose 40 MG; Start 12/15/16 at 06:00 Sodium Biphosphate/ Sodium Phosphate (Fleet Enema) 133 ml DAILY PRN [place] CONSTIPATION; Start 12/14/16 at 22:00 Warfarin Sodium (Coumadin) 6 mg DAILY@17 PO Last administered on 12/17/16 17: 18; Admin Dose 6 MG; Start 12/15/16 at 17:00 Levetiracetam (Keppra) 500 mg BID PO Last administered on 12/18/16 08:23; Admin Dose 500 MG; Start 12/14/16 at 21:48 Lorazepam (Ativan) 1 mg Q1H PRN IV SEIZURES Last administered on 12/16/16 15: 41; Admin Dose 1 MG; Start 12/14/16 at 22:00 Magnesium Hydroxide (Milk Of Mag) 30 ml DAILY PRN PO CONSTIPATION; Start at 22:00 Metoprolol Tartrate (Lopressor) 25 mg BID PO Last administered on 12/18/16 08: 24; Admin Dose 25 MG; Start 12/14/16 at 21:50 Acetaminophen (Tylenol Tab) 650 mg Q6H PRN PO PAIN AND OR ELEVATED TEMP Last administered on 12/18/16 05:07; Admin Dose 650 MG; Start 12/14/16 at 22:00 Aspirin (Halfprin) 162 mg DAILY PO Last administered on 12/18/16 08:24; Admin Dose 162 MG; Start 12/15/16 at 09:00 Diltiazem HCl (Cardizem Cd) 360 mg DAILY PO Last administered on 12/17/16 08: 40; Admin Dose 360 MG; Start 12/15/16 at 09:00 Hydralazine HCl (Apresoline) 10 mg Q6H PRN IV SBP > 160; Start 12/14/16 at 22: 00 Senna (Senokot) 1 tab HS PO Last administered on 12/17/16 21:06; Admin Dose 1 TAB; Start 12/15/16 at 21:00 Bisacodyl (Dulcolax Supp) 10 mg DAILY PRN [place] CONSTIPATION; Start 12/14/16 at 23 :45 Lactulose (Enulose) 20 gm DAILY PRN PO CONSTIPATION; Start 12/14/16 at 23:45 Temazepam (Restoril) 30 mg HS PRN PO INSOMNIA Last administered on 12/17/16 21 :09; Admin Dose 30 MG; Start 12/15/16 at 00:43 Docusate Sodium (Colace) 100 mg TID PO Last administered on 12/18/16 08:23; Admin Dose 100 MG; Start 12/16/16 at 13:00 Lorazepam (Ativan) 1 mg BID PRN IV anxiety Last administered on 12/17/16 19:51 ; Admin Dose 1 MG; Start 12/16/16 at 09:30 Collagenase (Santyl) 1 applic DAILY TOP Last administered on 12/17/16 15:02; Admin Dose 1 APPLIC; Start 12/17/16 at 09:00 Collagenase (Santyl) 1 applic DAILY PRN TOP WHEN SOILED; Start 12/16/16 at 22: 30 Miscellaneous Information (Pending Santyl Order For Wound Care) This patient ellis... PRN PRN XX WOUND CARE; Start 12/16/16 at 22:30 Hydromorphone HCl (Dilaudid) 1 mg Q2 PRN IV PAIN Last administered on 09:18; Admin Dose 1 MG; Start 12/17/16 at 17:00 Enoxaparin Sodium (Lovenox) 110 mg Q12 SC Last administered on 12/17/16 18:10 ; Admin Dose 110 MG; Start 12/17/16 at 17:00 Hydromorphone HCl (Dilaudid) 1 mg Q4H PRN PO PAIN; Start 12/18/16 at 10:00; Status SAMAN JAMES MD Dec 18, 2016 09:36
[2016-12-18] MEDS ORDERED: HYDROmorphONE 2 MG TAB PO PRN ×2 (10:00→14:00)
[2016-12-18] MEDS: ENOXAPARIN 80 MG/0.8 ML SYG SC SCH ×2 (10:58→20:16)
--- NOTE | 2016-12-18 12:35 | CONS ---
Date/Time of Note Date/Time of Note DATE: 12/18/16 TIME: 12:34 Consult Date/Type/Reason Admit Date/Time Dec 14, 2016 at 20:00 Initial Consult Date Type of Consultation: internal medicine Subjective Patient continues to complain of generalized pain specifically in the left shoulder. States his current pain regimen is not adequate. Objective Vital Signs Date Time Temp Pulse Resp B/P Pulse Ox O2 Delivery O2 Flow Rate FiO2 12/18/16 07:30 97.4 88 18 132/73 95 12/17/16 08:00 Room Air 12/15/16 22:20 21 Intake and Output 12/17/16 12/17/16 12/18/16 15:00 23:00 07:00 Intake Total 500 ml 360 ml Output Total 800 ml Balance 500 ml -440 ml Exam PHYSICAL EXAMINATION: GENERAL: Well-nourished, well-developed gentleman, comfortable at rest, no acute distress. VITAL SIGNS: As above NECK: Supple. No JVD or lymphadenopathy. CARDIAC: S1, S2, no added sounds or murmurs. CHEST: Diminished air entry bilaterally. ABDOMEN: Soft, nontender. No guarding or rebound. EXTREMITIES: No cyanosis, clubbing, edema. NEUROLOGIC: Generalized weakness. Results/Medications Result Diagram: 12/18/16 0550 12/15/16 0600 Results 24 hrs Laboratory Tests Test 12/18/16 05:50 White Blood Count 9.9 Red Blood Count 3.66 L Hemoglobin 11.1 L Hematocrit 33.3 L Mean Corpuscular Volume 91.0 Mean Corpuscular Hemoglobin 30.3 Mean Corpuscular Hemoglobin Concent 33.3 Red Cell Distribution Width 14.3 Platelet Count 434 #H Mean Platelet Volume 9.1 Neutrophils % 68.6 Lymphocytes % 16.7 Monocytes % 8.4 Eosinophils % 5.5 Basophils % 0.4 Nucleated Red Blood Cells % 0.0 Neutrophils # 6.8 Lymphocytes # 1.7 Monocytes # 0.8 Eosinophils # 0.5 Basophils # 0.0 Nucleated Red Blood Cells # 0.0 Prothrombin Time 15.6 H Prothrombin Time Ratio 1.2 INR International Normalized Ratio 1.23 Hepatitis C Antibody NEGATIVE HIV (1&2) Antibody NEGATIVE Medications Current Medications Nitroglycerin (Nitroglycerin (Sl Tab) 0.4 Mg) 1 tab Q5M PRN SL CHEST PAIN; Start 12/14/16 at 22:00 Ondansetron HCl (Zofran Inj) 4 mg Q6H PRN IV NAUSEA AND/OR VOMITING; Start at 22:00 Pantoprazole (Protonix Tab) 40 mg DAILY@06 PO Last administered on 12/18/16 05 :02; Admin Dose 40 MG; Start 12/15/16 at 06:00 Sodium Biphosphate/ Sodium Phosphate (Fleet Enema) 133 ml DAILY PRN [place] CONSTIPATION; Start 12/14/16 at 22:00 Warfarin Sodium (Coumadin) 6 mg DAILY@17 PO Last administered on 12/17/16 17: 18; Admin Dose 6 MG; Start 12/15/16 at 17:00 Levetiracetam (Keppra) 500 mg BID PO Last administered on 12/18/16 08:23; Admin Dose 500 MG; Start 12/14/16 at 21:48 Lorazepam (Ativan) 1 mg Q1H PRN IV SEIZURES Last administered on 12/16/16 15: 41; Admin Dose 1 MG; Start 12/14/16 at 22:00 Magnesium Hydroxide (Milk Of Mag) 30 ml DAILY PRN PO CONSTIPATION; Start at 22:00 Metoprolol Tartrate (Lopressor) 25 mg BID PO Last administered on 12/18/16 08: 24; Admin Dose 25 MG; Start 12/14/16 at 21:50 Acetaminophen (Tylenol Tab) 650 mg Q6H PRN PO PAIN AND OR ELEVATED TEMP Last administered on 12/18/16 05:07; Admin Dose 650 MG; Start 12/14/16 at 22:00 Aspirin (Halfprin) 162 mg DAILY PO Last administered on 12/18/16 08:24; Admin Dose 162 MG; Start 12/15/16 at 09:00 Diltiazem HCl (Cardizem Cd) 360 mg DAILY PO Last administered on 12/17/16 08: 40; Admin Dose 360 MG; Start 12/15/16 at 09:00 Hydralazine HCl (Apresoline) 10 mg Q6H PRN IV SBP > 160; Start 12/14/16 at 22: 00 Senna (Senokot) 1 tab HS PO Last administered on 12/17/16 21:06; Admin Dose 1 TAB; Start 12/15/16 at 21:00 Bisacodyl (Dulcolax Supp) 10 mg DAILY PRN [place] CONSTIPATION; Start 12/14/16 at 23 :45 Lactulose (Enulose) 20 gm DAILY PRN PO CONSTIPATION; Start 12/14/16 at 23:45 Temazepam (Restoril) 30 mg HS PRN PO INSOMNIA Last administered on 12/17/16 21 :09; Admin Dose 30 MG; Start 12/15/16 at 00:43 Docusate Sodium (Colace) 100 mg TID PO Last administered on 12/18/16 08:23; Admin Dose 100 MG; Start 12/16/16 at 13:00 Lorazepam (Ativan) 1 mg BID PRN IV anxiety Last administered on 12/17/16 19:51 ; Admin Dose 1 MG; Start 12/16/16 at 09:30 Collagenase (Santyl) 1 applic DAILY TOP Last administered on 12/17/16 15:02; Admin Dose 1 APPLIC; Start 12/17/16 at 09:00 Collagenase (Santyl) 1 applic DAILY PRN TOP WHEN SOILED; Start 12/16/16 at 22: 30 Miscellaneous Information (Pending Santyl Order For Wound Care) This patient ellis... PRN PRN XX WOUND CARE; Start 12/16/16 at 22:30 Hydromorphone HCl (Dilaudid) 1 mg Q2 PRN IV PAIN Last administered on 12:16; Admin Dose 1 MG; Start 12/17/16 at 17:00 Enoxaparin Sodium (Lovenox) 110 mg Q12 SC Last administered on 12/18/16 10:58 ; Admin Dose 110 MG; Start 12/17/16 at 17:00 Hydromorphone HCl (Dilaudid) 1 mg Q4H PRN PO PAIN Last administered on 12:19; Admin Dose 1 MG; Start 12/18/16 at 10:00 Assessment/Plan Chief Complaint/Hosp Course IMPRESSION 1. Recent fall, questionable seizure, now on antiepileptic medication. 2. Acromioclavicular joint injury. 3. 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 4. History of hypertension. Plan 1. Continue anticoagulation. 2. Physical therapy. 3. Pain control. 4. Incentive spirometry. 5. DVT and GI prophylaxis. 6. Orthopedic recommendations Problems: EAN HERNANDEZ MD, [facility] Dec 18, 2016 12:35
--- NOTE | 2016-12-18 16:48 | RADRPT ---
PROCEDURE: XR left shoulder. CLINICAL INDICATION: Pain TECHNIQUE: AP, Internal and external rotation views of the left shoulder were performed. COMPARISON: None. FINDINGS: There is normal osseous mineralization and alignment. No acute fracture or osseous lesion is identified. There are normal joints without evidence of arthritis or dislocation. The soft tissues are unremarkable. IMPRESSION: Unremarkable left shoulder. RPTAT: EE Physician Migdalia Date Time Electronically viewed and signed by Uriah Saldaña Physician on 12/18/2016 16:48 RA/
[2016-12-18] MEDS: LORAZEPAM 2 MG INJ IV PRN ×2 (16:54→21:28)
[2016-12-18] MEDS ORDERED: WARFARIN 2 MG TAB PO SCH (17:00)
[2016-12-18 19:54] VITALS: BP 141/82; RESP 18
[2016-12-18] MEDS: SENNA TAB PO SCH (20:05)
[2016-12-18] MEDS: TEMAZEPAM 15 MG CAP PO PRN (22:14)
[2016-12-19] MEDS: HYDROmorphONE 1 MG/ML SYG IV PRN ×8 (02:01→17:41)
[2016-12-19] MEDS: ALBUTEROL 18 GM INHALER INH SCH ×4 (02:01→20:54)
[2016-12-19] MEDS: ACETAMINOPHEN 325 MG TAB PO PRN (02:55)
[2016-12-19] MEDS: PANTOPRAZOLE (EC) 40 MG TAB PO SCH (06:06)
[2016-12-19 07:56] LABS: INR 1.14; PROTIME 14.6 Sec (12.2-14.2); PT RATIO 1.1
[2016-12-19 08:00] VITALS: BP 156/88; PULSE 86; RESP 18
[2016-12-19] MEDS: DOCUSATE SODIUM 100 MG CAP PO SCH ×3 (08:07→20:54)
[2016-12-19] MEDS: DILTIAZEM (CD) 180 MG CAP PO SCH (08:07)
[2016-12-19] MEDS: LEVETIRACETAM 500 MG TAB PO SCH ×2 (08:07→20:54)
[2016-12-19] MEDS: METOPROLOL 25 MG TAB PO SCH ×2 (08:08→21:12)
[2016-12-19] MEDS: ASPIRIN (EC) 81 MG TAB PO SCH (08:08)
[2016-12-19] MEDS: COLLAGENASE 30 GM TUBE TOP SCH (09:00)
[2016-12-19] MEDS: HYDROmorphONE 2 MG TAB PO PRN ×3 (09:11→21:13)
[2016-12-19] MEDS: ENOXAPARIN 80 MG/0.8 ML SYG SC SCH ×2 (10:00→21:18)
--- NOTE | 2016-12-19 12:39 | CONS ---
Date/Time of Note Date/Time of Note DATE: 12/19/16 TIME: 12:37 Consult Date/Type/Reason Admit Date/Time Dec 14, 2016 at 20:00 Type of Consultation: internal medicine Subjective Feels better after shower, still with pain complaints Objective pulm-cta cga transfer and ambulation Vital Signs Date Time Temp Pulse Resp B/P Pulse Ox O2 Delivery O2 Flow Rate FiO2 12/19/16 08:00 98.1 86 18 156/88 98 Room Air 12/15/16 22:20 21 Intake and Output 12/18/16 12/18/16 12/19/16 15:00 23:00 07:00 Intake Total 640 ml 480 ml Output Total 460 ml 600 ml Balance 180 ml -120 ml Results/Medications Result Diagram: 12/18/16 0550 12/15/16 0600 Results 24 hrs Laboratory Tests Test 12/19/16 06:15 Prothrombin Time 14.6 H Prothrombin Time Ratio 1.1 INR International Normalized Ratio 1.14 Medications Current Medications Nitroglycerin (Nitroglycerin (Sl Tab) 0.4 Mg) 1 tab Q5M PRN SL CHEST PAIN; Start 12/14/16 at 22:00 Ondansetron HCl (Zofran Inj) 4 mg Q6H PRN IV NAUSEA AND/OR VOMITING; Start at 22:00 Pantoprazole (Protonix Tab) 40 mg DAILY@06 PO Last administered on 12/19/16 06 :06; Admin Dose 40 MG; Start 12/15/16 at 06:00 Sodium Biphosphate/ Sodium Phosphate (Fleet Enema) 133 ml DAILY PRN [place] CONSTIPATION; Start 12/14/16 at 22:00 Levetiracetam (Keppra) 500 mg BID PO Last administered on 12/19/16 08:07; Admin Dose 500 MG; Start 12/14/16 at 21:48 Lorazepam (Ativan) 1 mg Q1H PRN IV SEIZURES Last administered on 12/18/16 16: 54; Admin Dose 1 MG; Start 12/14/16 at 22:00 Magnesium Hydroxide (Milk Of Mag) 30 ml DAILY PRN PO CONSTIPATION; Start at 22:00 Metoprolol Tartrate (Lopressor) 25 mg BID PO Last administered on 12/19/16 08: 08; Admin Dose 25 MG; Start 12/14/16 at 21:50 Acetaminophen (Tylenol Tab) 650 mg Q6H PRN PO PAIN AND OR ELEVATED TEMP Last administered on 12/19/16 02:55; Admin Dose 650 MG; Start 12/14/16 at 22:00 Aspirin (Halfprin) 162 mg DAILY PO Last administered on 12/19/16 08:08; Admin Dose 162 MG; Start 12/15/16 at 09:00 Diltiazem HCl (Cardizem Cd) 360 mg DAILY PO Last administered on 12/19/16 08: 07; Admin Dose 360 MG; Start 12/15/16 at 09:00 Hydralazine HCl (Apresoline) 10 mg Q6H PRN IV SBP > 160; Start 12/14/16 at 22: 00 Senna (Senokot) 1 tab HS PO Last administered on 12/18/16 20:05; Admin Dose 1 TAB; Start 12/15/16 at 21:00 Bisacodyl (Dulcolax Supp) 10 mg DAILY PRN [place] CONSTIPATION; Start 12/14/16 at 23 :45 Lactulose (Enulose) 20 gm DAILY PRN PO CONSTIPATION; Start 12/14/16 at 23:45 Temazepam (Restoril) 30 mg HS PRN PO INSOMNIA Last administered on 12/18/16 22 :14; Admin Dose 30 MG; Start 12/15/16 at 00:43 Docusate Sodium (Colace) 100 mg TID PO Last administered on 12/19/16 08:07; Admin Dose 100 MG; Start 12/16/16 at 13:00 Lorazepam (Ativan) 1 mg BID PRN IV anxiety Last administered on 12/18/16 21:28 ; Admin Dose 1 MG; Start 12/16/16 at 09:30 Collagenase (Santyl) 1 applic DAILY TOP Last administered on 12/17/16 15:02; Admin Dose 1 APPLIC; Start 12/17/16 at 09:00 Collagenase (Santyl) 1 applic DAILY PRN TOP WHEN SOILED; Start 12/16/16 at 22: 30 Miscellaneous Information (Pending Santyl Order For Wound Care) This patient ellis... PRN PRN XX WOUND CARE; Start 12/16/16 at 22:30 Hydromorphone HCl (Dilaudid) 1 mg Q2 PRN IV PAIN Last administered on 12:27; Admin Dose 1 MG; Start 12/17/16 at 17:00 Enoxaparin Sodium (Lovenox) 110 mg Q12 SC Last administered on 12/19/16 10:00 ; Admin Dose 110 MG; Start 12/17/16 at 17:00 Warfarin Sodium (Coumadin) 8 mg DAILY@17 PO Last administered on 12/18/16 16: 54; Admin Dose 8 MG; Start 12/18/16 at 17:00 Hydromorphone HCl (Dilaudid) 1 mg Q4H PRN PO PAIN Last administered on 09:11; Admin Dose 1 MG; Start 12/18/16 at 18:00 Assessment/Plan Additional Assessment/Plan Rehab- Status post fall with blunt head trauma including loss of consciousness, seizure activity, bilateral upper extremity contusions, and AC joint separation. 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 Chronic low back pain with degenerative disk disease. Asthma. Hypertension. Pain- working on transition from IV to oral SAMAN RUFFIN MD Dec 19, 2016 12:39
--- NOTE | 2016-12-19 14:45 | CONS ---
Date/Time of Note Date/Time of Note DATE: 12/19/16 TIME: 14:39 Consult Date/Type/Reason Admit Date/Time Dec 14, 2016 at 20:00 Type of Consultation: internal medicine Subjective Still complaining of generalized pain Objective Vital Signs Date Time Temp Pulse Resp B/P Pulse Ox O2 Delivery O2 Flow Rate FiO2 12/19/16 08:00 98.1 86 18 156/88 98 Room Air 12/15/16 22:20 21 Intake and Output 12/18/16 12/18/16 12/19/16 15:00 23:00 07:00 Intake Total 640 ml 480 ml Output Total 460 ml 600 ml Balance 180 ml -120 ml Exam PHYSICAL EXAMINATION: GENERAL: Well-nourished, well-developed gentleman, comfortable at rest, no acute distress. VITAL SIGNS: As above NECK: Supple. No JVD or lymphadenopathy. CARDIAC: S1, S2, no added sounds or murmurs. CHEST: Diminished air entry bilaterally. ABDOMEN: Soft, nontender. No guarding or rebound. EXTREMITIES: No cyanosis, clubbing, edema. NEUROLOGIC: Generalized weakness. Results/Medications Result Diagram: 12/18/16 0550 12/15/16 0600 Results 24 hrs Laboratory Tests Test 12/19/16 06:15 Prothrombin Time 14.6 H Prothrombin Time Ratio 1.1 INR International Normalized Ratio 1.14 Medications Current Medications Nitroglycerin (Nitroglycerin (Sl Tab) 0.4 Mg) 1 tab Q5M PRN SL CHEST PAIN; Start 12/14/16 at 22:00 Ondansetron HCl (Zofran Inj) 4 mg Q6H PRN IV NAUSEA AND/OR VOMITING; Start at 22:00 Pantoprazole (Protonix Tab) 40 mg DAILY@06 PO Last administered on 12/19/16 06 :06; Admin Dose 40 MG; Start 12/15/16 at 06:00 Sodium Biphosphate/ Sodium Phosphate (Fleet Enema) 133 ml DAILY PRN [place] CONSTIPATION; Start 12/14/16 at 22:00 Levetiracetam (Keppra) 500 mg BID PO Last administered on 12/19/16 08:07; Admin Dose 500 MG; Start 12/14/16 at 21:48 Lorazepam (Ativan) 1 mg Q1H PRN IV SEIZURES Last administered on 12/18/16 16: 54; Admin Dose 1 MG; Start 12/14/16 at 22:00 Magnesium Hydroxide (Milk Of Mag) 30 ml DAILY PRN PO CONSTIPATION; Start at 22:00 Metoprolol Tartrate (Lopressor) 25 mg BID PO Last administered on 12/19/16 08: 08; Admin Dose 25 MG; Start 12/14/16 at 21:50 Acetaminophen (Tylenol Tab) 650 mg Q6H PRN PO PAIN AND OR ELEVATED TEMP Last administered on 12/19/16 02:55; Admin Dose 650 MG; Start 12/14/16 at 22:00 Aspirin (Halfprin) 162 mg DAILY PO Last administered on 12/19/16 08:08; Admin Dose 162 MG; Start 12/15/16 at 09:00 Diltiazem HCl (Cardizem Cd) 360 mg DAILY PO Last administered on 12/19/16 08: 07; Admin Dose 360 MG; Start 12/15/16 at 09:00 Hydralazine HCl (Apresoline) 10 mg Q6H PRN IV SBP > 160; Start 12/14/16 at 22: 00 Senna (Senokot) 1 tab HS PO Last administered on 12/18/16 20:05; Admin Dose 1 TAB; Start 12/15/16 at 21:00 Bisacodyl (Dulcolax Supp) 10 mg DAILY PRN [place] CONSTIPATION; Start 12/14/16 at 23 :45 Lactulose (Enulose) 20 gm DAILY PRN PO CONSTIPATION; Start 12/14/16 at 23:45 Temazepam (Restoril) 30 mg HS PRN PO INSOMNIA Last administered on 12/18/16 22 :14; Admin Dose 30 MG; Start 12/15/16 at 00:43 Docusate Sodium (Colace) 100 mg TID PO Last administered on 12/19/16 14:12; Admin Dose 100 MG; Start 12/16/16 at 13:00 Lorazepam (Ativan) 1 mg BID PRN IV anxiety Last administered on 12/18/16 21:28 ; Admin Dose 1 MG; Start 12/16/16 at 09:30 Collagenase (Santyl) 1 applic DAILY TOP Last administered on 12/17/16 15:02; Admin Dose 1 APPLIC; Start 12/17/16 at 09:00 Collagenase (Santyl) 1 applic DAILY PRN TOP WHEN SOILED; Start 12/16/16 at 22: 30 Miscellaneous Information (Pending Santyl Order For Wound Care) This patient ellis... PRN PRN XX WOUND CARE; Start 12/16/16 at 22:30 Hydromorphone HCl (Dilaudid) 1 mg Q2 PRN IV PAIN Last administered on 12:27; Admin Dose 1 MG; Start 12/17/16 at 17:00 Enoxaparin Sodium (Lovenox) 110 mg Q12 SC Last administered on 12/19/16 10:00 ; Admin Dose 110 MG; Start 12/17/16 at 17:00 Warfarin Sodium (Coumadin) 8 mg DAILY@17 PO Last administered on 12/18/16 16: 54; Admin Dose 8 MG; Start 12/18/16 at 17:00 Hydromorphone HCl (Dilaudid) 1 mg Q4H PRN PO PAIN Last administered on 14:14; Admin Dose 1 MG; Start 12/18/16 at 18:00 Assessment/Plan Chief Complaint/Hosp Course IMPRESSION 1. Recent fall, questionable seizure, now on antiepileptic medication. 2. Acromioclavicular joint injury. 3. 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 4. History of hypertension. Plan 1. Continue anticoagulation. Decrease Coumadin to 10 mg daily. Continue Lovenox 2. Physical therapy. 3. Pain control. 4. Incentive spirometry. 5. DVT and GI prophylaxis. 6. Orthopedic recommendations Problems: EAN HERNANDEZ MD, [facility] Dec 19, 2016 14:45
[2016-12-19] MEDS: WARFARIN 10 MG TAB PO SCH (17:43)
[2016-12-19] MEDS: LORAZEPAM 2 MG INJ IV PRN (19:56)
[2016-12-19 20:46] VITALS: BP 137/75; RESP 18
[2016-12-19] MEDS: SENNA TAB PO SCH (20:54)
[2016-12-19] MEDS: TEMAZEPAM 15 MG CAP PO PRN (22:39)
[2016-12-20] MEDS: HYDROmorphONE 1 MG/ML SYG IV PRN ×10 (00:59→22:02)
[2016-12-20] MEDS: ACETAMINOPHEN 325 MG TAB PO PRN (01:37)
[2016-12-20] MEDS: ALBUTEROL 18 GM INHALER INH SCH ×4 (02:00→19:52)
[2016-12-20] MEDS: PANTOPRAZOLE (EC) 40 MG TAB PO SCH (06:30)
[2016-12-20 06:53] LABS: INR 1.29; PROTIME 16.2 Sec (12.2-14.2); PT RATIO 1.3
[2016-12-20 08:00] VITALS: BP 176/98; RESP 18
[2016-12-20] MEDS ORDERED: HYDROmorphONE 1 MG/ML SYG IV STA (08:57)
[2016-12-20] MEDS: ENOXAPARIN 80 MG/0.8 ML SYG SC SCH ×2 (09:42→22:20)
[2016-12-20] MEDS: DOCUSATE SODIUM 100 MG CAP PO SCH ×3 (09:42→19:52)
[2016-12-20] MEDS: COLLAGENASE 30 GM TUBE TOP SCH (09:42)
[2016-12-20] MEDS: LEVETIRACETAM 500 MG TAB PO SCH ×2 (09:42→19:56)
[2016-12-20] MEDS: DILTIAZEM (CD) 180 MG CAP PO SCH (09:43)
[2016-12-20] MEDS: METOPROLOL 25 MG TAB PO SCH ×2 (09:44→19:56)
[2016-12-20 10:00] VITALS: BP 145/78; RESP 18
--- NOTE | 2016-12-20 11:19 | RADRPT ---
PROCEDURE: XR Chest. CLINICAL INDICATION: c/o chest pain TECHNIQUE: Single frontal view of the chest was obtained. COMPARISON: Chest x-ray from 12/10/2016 FINDINGS: The heart and mediastinum are within normal limits. The lungs are clear. There is a small left pleural effusion. IMPRESSION: Small left pleural effusion. RPTAT: EE Uriah Saldaña Physician Date Time Electronically viewed and signed by Uriah Saldaña Physician on 12/20/2016 11:18 RA/
[2016-12-20] MEDS: HYDROmorphONE 2 MG TAB PO PRN ×2 (11:31→15:23)
--- NOTE | 2016-12-20 12:21 | CONS ---
Date/Time of Note Date/Time of Note DATE: 12/20/16 TIME: 12:19 Consult Date/Type/Reason Admit Date/Time Dec 14, 2016 at 20:00 Type of Consultation: internal medicine Subjective Patient with episode of CP this AM, currently denies Objective pulm-cta abd- soft min assist ambulation Vital Signs Date Time Temp Pulse Resp B/P Pulse Ox O2 Delivery O2 Flow Rate FiO2 12/19/16 20:46 98.4 89 18 137/75 95 12/19/16 08:00 Room Air Intake and Output 12/19/16 12/19/16 12/20/16 15:00 23:00 07:00 Intake Total 700 ml 1200 ml Output Total 800 ml Balance 700 ml 400 ml Results/Medications Result Diagram: 12/18/16 0550 Results 24 hrs Laboratory Tests Test 12/20/16 06:10 Prothrombin Time 16.2 H Prothrombin Time Ratio 1.3 INR International Normalized Ratio 1.29 Medications Current Medications Nitroglycerin (Nitroglycerin (Sl Tab) 0.4 Mg) 1 tab Q5M PRN SL CHEST PAIN; Start 12/14/16 at 22:00 Ondansetron HCl (Zofran Inj) 4 mg Q6H PRN IV NAUSEA AND/OR VOMITING; Start at 22:00 Pantoprazole (Protonix Tab) 40 mg DAILY@06 PO Last administered on 12/20/16 06 :30; Admin Dose 40 MG; Start 12/15/16 at 06:00 Sodium Biphosphate/ Sodium Phosphate (Fleet Enema) 133 ml DAILY PRN [place] CONSTIPATION; Start 12/14/16 at 22:00 Levetiracetam (Keppra) 500 mg BID PO Last administered on 12/20/16 09:42; Admin Dose 500 MG; Start 12/14/16 at 21:48 Lorazepam (Ativan) 1 mg Q1H PRN IV SEIZURES Last administered on 12/18/16 16: 54; Admin Dose 1 MG; Start 12/14/16 at 22:00 Magnesium Hydroxide (Milk Of Mag) 30 ml DAILY PRN PO CONSTIPATION; Start at 22:00 Metoprolol Tartrate (Lopressor) 25 mg BID PO Last administered on 12/20/16 09: 44; Admin Dose 25 MG; Start 12/14/16 at 21:50 Acetaminophen (Tylenol Tab) 650 mg Q6H PRN PO PAIN AND OR ELEVATED TEMP Last administered on 12/20/16 01:37; Admin Dose 650 MG; Start 12/14/16 at 22:00 Aspirin (Halfprin) 162 mg DAILY PO Last administered on 12/19/16 08:08; Admin Dose 162 MG; Start 12/15/16 at 09:00 Diltiazem HCl (Cardizem Cd) 360 mg DAILY PO Last administered on 12/20/16 09: 43; Admin Dose 360 MG; Start 12/15/16 at 09:00 Hydralazine HCl (Apresoline) 10 mg Q6H PRN IV SBP > 160; Start 12/14/16 at 22: 00 Senna (Senokot) 1 tab HS PO Last administered on 12/19/16 20:54; Admin Dose 1 TAB; Start 12/15/16 at 21:00 Bisacodyl (Dulcolax Supp) 10 mg DAILY PRN [place] CONSTIPATION; Start 12/14/16 at 23 :45 Lactulose (Enulose) 20 gm DAILY PRN PO CONSTIPATION; Start 12/14/16 at 23:45 Temazepam (Restoril) 30 mg HS PRN PO INSOMNIA Last administered on 12/19/16 22 :39; Admin Dose 30 MG; Start 12/15/16 at 00:43 Docusate Sodium (Colace) 100 mg TID PO Last administered on 12/20/16 09:42; Admin Dose 100 MG; Start 12/16/16 at 13:00 Lorazepam (Ativan) 1 mg BID PRN IV anxiety Last administered on 12/19/16 19:56 ; Admin Dose 1 MG; Start 12/16/16 at 09:30 Collagenase (Santyl) 1 applic DAILY TOP Last administered on 12/20/16 09:42; Admin Dose 1 APPLIC; Start 12/17/16 at 09:00 Collagenase (Santyl) 1 applic DAILY PRN TOP WHEN SOILED; Start 12/16/16 at 22: 30 Miscellaneous Information (Pending Santyl Order For Wound Care) This patient ellis... PRN PRN XX WOUND CARE; Start 12/16/16 at 22:30 Hydromorphone HCl (Dilaudid) 1 mg Q2 PRN IV PAIN Last administered on 11:30; Admin Dose 1 MG; Start 12/17/16 at 17:00 Enoxaparin Sodium (Lovenox) 110 mg Q12 SC Last administered on 12/20/16 09:42 ; Admin Dose 110 MG; Start 12/17/16 at 17:00 Hydromorphone HCl (Dilaudid) 1 mg Q4H PRN PO PAIN Last administered on 11:31; Admin Dose 1 MG; Start 12/18/16 at 18:00 Warfarin Sodium (Coumadin) 10 mg DAILY@17 PO Last administered on 12/19/16 17: 43; Admin Dose 10 MG; Start 12/19/16 at 17:00 Assessment/Plan Additional Assessment/Plan Rehab- Status post fall with blunt head trauma including loss of consciousness, seizure activity, bilateral upper extremity contusions, and AC joint separation. Patient has made progress, however given the need for assistance at home, anticipate transition to SNF for therapies at lower level of care. 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 Chronic low back pain with degenerative disk disease. Asthma. Hypertension. Pain- working on transition from IV to oral SAMAN RUFFIN MD Dec 20, 2016 12:21
--- NOTE | 2016-12-20 16:13 | CONS ---
Date/Time of Note Date/Time of Note DATE: 12/20/16 TIME: 16:12 Consult Date/Type/Reason Admit Date/Time Dec 14, 2016 at 20:00 Type of Consultation: internal medicine Subjective Complaining of chest pain this morning central chest discomfort and nausea and vomiting no radiation of chest pain no hemoptysis or hematemesis. Initial chest x-ray was unremarkable other than small left pleural effusion EKG was also unremarkable. Objective Vital Signs Date Time Temp Pulse Resp B/P Pulse Ox O2 Delivery O2 Flow Rate FiO2 12/20/16 10:00 18 145/78 99 Room Air 12/20/16 08:00 98.2 12/19/16 20:46 89 Intake and Output 12/19/16 12/19/16 12/20/16 15:00 23:00 07:00 Intake Total 700 ml 1200 ml Output Total 800 ml Balance 700 ml 400 ml Exam PHYSICAL EXAMINATION: GENERAL: Well-nourished, well-developed gentleman, comfortable at rest, no acute distress. VITAL SIGNS: As above NECK: Supple. No JVD or lymphadenopathy. CARDIAC: S1, S2, no added sounds or murmurs. CHEST: Diminished air entry bilaterally. ABDOMEN: Soft, nontender. No guarding or rebound. EXTREMITIES: No cyanosis, clubbing, edema. NEUROLOGIC: Generalized weakness. Results/Medications Result Diagram: 12/18/16 0550 Results 24 hrs Laboratory Tests Test 12/20/16 06:10 Prothrombin Time 16.2 H Prothrombin Time Ratio 1.3 INR International Normalized Ratio 1.29 Medications Current Medications Nitroglycerin (Nitroglycerin (Sl Tab) 0.4 Mg) 1 tab Q5M PRN SL CHEST PAIN; Start 12/14/16 at 22:00 Ondansetron HCl (Zofran Inj) 4 mg Q6H PRN IV NAUSEA AND/OR VOMITING; Start at 22:00 Pantoprazole (Protonix Tab) 40 mg DAILY@06 PO Last administered on 12/20/16 06 :30; Admin Dose 40 MG; Start 12/15/16 at 06:00 Sodium Biphosphate/ Sodium Phosphate (Fleet Enema) 133 ml DAILY PRN MS CONSTIPATION; Start 12/14/16 at 22:00 Levetiracetam (Keppra) 500 mg BID PO Last administered on 12/20/16 09:42; Admin Dose 500 MG; Start 12/14/16 at 21:48 Lorazepam (Ativan) 1 mg Q1H PRN IV SEIZURES Last administered on 12/18/16 16: 54; Admin Dose 1 MG; Start 12/14/16 at 22:00 Magnesium Hydroxide (Milk Of Mag) 30 ml DAILY PRN PO CONSTIPATION; Start at 22:00 Metoprolol Tartrate (Lopressor) 25 mg BID PO Last administered on 12/20/16 09: 44; Admin Dose 25 MG; Start 12/14/16 at 21:50 Acetaminophen (Tylenol Tab) 650 mg Q6H PRN PO PAIN AND OR ELEVATED TEMP Last administered on 12/20/16 01:37; Admin Dose 650 MG; Start 12/14/16 at 22:00 Aspirin (Halfprin) 162 mg DAILY PO Last administered on 12/19/16 08:08; Admin Dose 162 MG; Start 12/15/16 at 09:00 Diltiazem HCl (Cardizem Cd) 360 mg DAILY PO Last administered on 12/20/16 09: 43; Admin Dose 360 MG; Start 12/15/16 at 09:00 Hydralazine HCl (Apresoline) 10 mg Q6H PRN IV SBP > 160; Start 12/14/16 at 22: 00 Senna (Senokot) 1 tab HS PO Last administered on 12/19/16 20:54; Admin Dose 1 TAB; Start 12/15/16 at 21:00 Bisacodyl (Dulcolax Supp) 10 mg DAILY PRN MS CONSTIPATION; Start 12/14/16 at 23 :45 Lactulose (Enulose) 20 gm DAILY PRN PO CONSTIPATION; Start 12/14/16 at 23:45 Temazepam (Restoril) 30 mg HS PRN PO INSOMNIA Last administered on 12/19/16 22 :39; Admin Dose 30 MG; Start 12/15/16 at 00:43 Docusate Sodium (Colace) 100 mg TID PO Last administered on 12/20/16 13:00; Admin Dose 100 MG; Start 12/16/16 at 13:00 Lorazepam (Ativan) 1 mg BID PRN IV anxiety Last administered on 12/19/16 19:56 ; Admin Dose 1 MG; Start 12/16/16 at 09:30 Collagenase (Santyl) 1 applic DAILY TOP Last administered on 12/20/16 09:42; Admin Dose 1 APPLIC; Start 12/17/16 at 09:00 Collagenase (Santyl) 1 applic DAILY PRN TOP WHEN SOILED; Start 12/16/16 at 22: 30 Miscellaneous Information (Pending Santyl Order For Wound Care) This patient ellis... PRN PRN XX WOUND CARE; Start 12/16/16 at 22:30 Hydromorphone HCl (Dilaudid) 1 mg Q2 PRN IV PAIN Last administered on 15:23; Admin Dose 1 MG; Start 12/17/16 at 17:00 Enoxaparin Sodium (Lovenox) 110 mg Q12 SC Last administered on 12/20/16 09:42 ; Admin Dose 110 MG; Start 12/17/16 at 17:00 Hydromorphone HCl (Dilaudid) 1 mg Q4H PRN PO PAIN Last administered on 15:23; Admin Dose 1 MG; Start 12/18/16 at 18:00 Warfarin Sodium (Coumadin) 10 mg DAILY@17 PO Last administered on 12/19/16 17: 43; Admin Dose 10 MG; Start 12/19/16 at 17:00 Assessment/Plan Chief Complaint/Hosp Course IMPRESSION 1. Recent fall, questionable seizure, now on antiepileptic medication. 2. Acromioclavicular joint injury. 3. 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 4. History of hypertension. 5. Chest pain appears noncardiac in origin unlikely to be pulmonary embolus although this would be in the differential. Patient remains fully anticoagulated with Lovenox Plan 1. Continue anticoagulation. Continue Coumadin 10 mg daily. Continue Lovenox 2. Physical therapy. 3. Pain control. 4. Incentive spirometry. 5. DVT and GI prophylaxis. 6. Orthopedic recommendations 6. Monitor chest pain. Cardiac consult if chest pain returns. Problems: EAN HERNANDEZ MD, [facility] Dec 20, 2016 16:13
[2016-12-20] MEDS: WARFARIN 10 MG TAB PO SCH (17:38)
[2016-12-20] MEDS: ASPIRIN (EC) 81 MG TAB PO SCH (17:39)
[2016-12-20] MEDS: LORAZEPAM 2 MG INJ IV PRN ×2 (17:42→20:56)
[2016-12-20] MEDS: SENNA TAB PO SCH (19:52)
[2016-12-20 20:00] VITALS: BP 152/92; RESP 18
[2016-12-20] MEDS: ENOXAPARIN 30 MG/0.3 ML SYG SC SCH (21:08)
[2016-12-20] MEDS: TEMAZEPAM 15 MG CAP PO PRN (23:03)
[2016-12-21] MEDS: HYDROmorphONE 1 MG/ML SYG IV PRN ×5 (00:02→11:52)
[2016-12-21] MEDS: ACETAMINOPHEN 325 MG TAB PO PRN (01:40)
[2016-12-21] MEDS: ALBUTEROL 18 GM INHALER INH SCH ×2 (02:00→09:03)
[2016-12-21] MEDS: PANTOPRAZOLE (EC) 40 MG TAB PO SCH (04:56)
[2016-12-21] MEDS: LORAZEPAM 2 MG INJ IV PRN ×2 (06:08→12:54)
[2016-12-21 07:07] LABS: INR 1.23; PROTIME 15.6 Sec (12.2-14.2); PT RATIO 1.2
[2016-12-21 07:30] VITALS: BP 137/88; RESP 18
[2016-12-21] MEDS: DILTIAZEM (CD) 180 MG CAP PO SCH (08:57)
[2016-12-21] MEDS: ASPIRIN (EC) 81 MG TAB PO SCH (08:57)
[2016-12-21] MEDS: DOCUSATE SODIUM 100 MG CAP PO SCH (08:57)
[2016-12-21] MEDS: LEVETIRACETAM 500 MG TAB PO SCH (08:58)
[2016-12-21] MEDS: METOPROLOL 25 MG TAB PO SCH (08:58)
[2016-12-21] MEDS: ENOXAPARIN 30 MG/0.3 ML SYG SC SCH (09:01)
[2016-12-21] MEDS: ENOXAPARIN 80 MG/0.8 ML SYG SC SCH (09:01)
[2016-12-21] MEDS: COLLAGENASE 30 GM TUBE TOP SCH (09:03)
--- NOTE | 2016-12-21 12:07 | CONS ---
Date/Time of Note Date/Time of Note DATE: 12/21/16 TIME: 12:04 Consult Date/Type/Reason Admit Date/Time Dec 14, 2016 at 20:00 Type of Consultation: internal medicine Subjective Patient doing okay this morning anticipating transfer to assisted facility Objective Vital Signs Date Time Temp Pulse Resp B/P Pulse Ox O2 Delivery O2 Flow Rate FiO2 12/21/16 07:30 98.5 92 18 137/88 94 12/20/16 10:00 Room Air Intake and Output 12/20/16 12/20/16 12/21/16 14:59 22:59 06:59 Intake Total 750 ml 1300 ml 250 ml Output Total 900 ml 150 ml Balance 750 ml 400 ml 100 ml Results/Medications Result Diagram: 12/18/16 0550 Results 24 hrs Laboratory Tests Test 12/21/16 06:00 Prothrombin Time 15.6 H Prothrombin Time Ratio 1.2 INR International Normalized Ratio 1.23 Medications Current Medications Nitroglycerin (Nitroglycerin (Sl Tab) 0.4 Mg) 1 tab Q5M PRN SL CHEST PAIN; Start 12/14/16 at 22:00 Ondansetron HCl (Zofran Inj) 4 mg Q6H PRN IV NAUSEA AND/OR VOMITING; Start at 22:00 Pantoprazole (Protonix Tab) 40 mg DAILY@06 PO Last administered on 12/21/16 04 :56; Admin Dose 40 MG; Start 12/15/16 at 06:00 Sodium Biphosphate/ Sodium Phosphate (Fleet Enema) 133 ml DAILY PRN ME CONSTIPATION; Start 12/14/16 at 22:00 Levetiracetam (Keppra) 500 mg BID PO Last administered on 12/21/16 08:58; Admin Dose 500 MG; Start 12/14/16 at 21:48 Lorazepam (Ativan) 1 mg Q1H PRN IV SEIZURES Last administered on 12/20/16 17: 42; Admin Dose 1 MG; Start 12/14/16 at 22:00 Magnesium Hydroxide (Milk Of Mag) 30 ml DAILY PRN PO CONSTIPATION; Start at 22:00 Metoprolol Tartrate (Lopressor) 25 mg BID PO Last administered on 12/21/16 08: 58; Admin Dose 25 MG; Start 12/14/16 at 21:50 Acetaminophen (Tylenol Tab) 650 mg Q6H PRN PO PAIN AND OR ELEVATED TEMP Last administered on 12/21/16 01:40; Admin Dose 650 MG; Start 12/14/16 at 22:00 Aspirin (Halfprin) 162 mg DAILY PO Last administered on 12/21/16 08:57; Admin Dose 162 MG; Start 12/15/16 at 09:00 Diltiazem HCl (Cardizem Cd) 360 mg DAILY PO Last administered on 12/21/16 08: 57; Admin Dose 360 MG; Start 12/15/16 at 09:00 Hydralazine HCl (Apresoline) 10 mg Q6H PRN IV SBP > 160; Start 12/14/16 at 22: 00 Senna (Senokot) 1 tab HS PO Last administered on 12/20/16 19:52; Admin Dose 1 TAB; Start 12/15/16 at 21:00 Bisacodyl (Dulcolax Supp) 10 mg DAILY PRN ME CONSTIPATION; Start 12/14/16 at 23 :45 Lactulose (Enulose) 20 gm DAILY PRN PO CONSTIPATION; Start 12/14/16 at 23:45 Temazepam (Restoril) 30 mg HS PRN PO INSOMNIA Last administered on 12/20/16 23 :03; Admin Dose 30 MG; Start 12/15/16 at 00:43 Docusate Sodium (Colace) 100 mg TID PO Last administered on 12/21/16 08:57; Admin Dose 100 MG; Start 12/16/16 at 13:00 Lorazepam (Ativan) 1 mg BID PRN IV anxiety Last administered on 12/21/16 06:08 ; Admin Dose 1 MG; Start 12/16/16 at 09:30 Collagenase (Santyl) 1 applic DAILY TOP Last administered on 12/21/16 09:03; Admin Dose 1 APPLIC; Start 12/17/16 at 09:00 Collagenase (Santyl) 1 applic DAILY PRN TOP WHEN SOILED; Start 12/16/16 at 22: 30 Miscellaneous Information (Pending Santyl Order For Wound Care) This patient ellis... PRN PRN XX WOUND CARE; Start 12/16/16 at 22:30 Hydromorphone HCl (Dilaudid) 1 mg Q2 PRN IV PAIN Last administered on 11:52; Admin Dose 1 MG; Start 12/17/16 at 17:00 Hydromorphone HCl (Dilaudid) 1 mg Q4H PRN PO PAIN Last administered on 15:23; Admin Dose 1 MG; Start 12/18/16 at 18:00 Warfarin Sodium (Coumadin) 10 mg DAILY@17 PO Last administered on 12/20/16 17: 38; Admin Dose 10 MG; Start 12/19/16 at 17:00 Enoxaparin Sodium (Lovenox) 30 mg Q12 SC Last administered on 12/21/16 09:01; Admin Dose 30 MG; Start 12/20/16 at 21:00 Enoxaparin Sodium (Lovenox) 80 mg Q12 SC Last administered on 12/21/16 09:01; Admin Dose 80 MG; Start 12/20/16 at 21:00 Assessment/Plan Chief Complaint/Hosp Course IMPRESSION 1. Recent fall, questionable seizure, now on antiepileptic medication. 2. Acromioclavicular joint injury. 3. 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 4. History of hypertension. 5. Chest pain appears noncardiac in origin unlikely to be pulmonary embolus although this would be in the differential. Patient remains fully anticoagulated with Lovenox Plan 1. Continue anticoagulation. Continue Coumadin 10 mg daily. Continue Lovenox 2. Physical therapy. 3. Pain control. 4. Incentive spirometry. 5. DVT and GI prophylaxis. Disposition Discharged to staff Continue anticoagulation Problems: EAN HERNANDEZ MD, [facility] Dec 21, 2016 12:07
--- NOTE | 2016-12-21 17:13 | RADRPT ---
Vent Rate: 89 bpm RR Interval: 0 msec MN Interval: 144 msec QRS Duration: 86 msec QT Interval: 350 msec QTC Interval: 425 msec P-R-T [place]: 60 - -1 - 56 degrees Normal sinus rhythm Normal ECG Electronically Signed By: Shar Franklin [id number]
== END 2016-12-21 13:41 | DRG 560 ==
LOC: VRC 12-14 20:00
PROVIDERS: ADMIT Physical Medicine & Rehabilitation; ATTEND Internal Medicine Pulmonary Disease
PROC: F07Z5FZ Bed Mobility Treatment using Assistive, Adaptive, Supportive or Protective Equipment (ICD-10-PCS; principal; 2016-12-15)
PROC: F07Z8FZ Transfer Training Treatment using Assistive, Adaptive, Supportive or Protective Equipment (ICD-10-PCS; 2016-12-15)
PROC: F07Z9FZ Gait Training/Functional Ambulation Treatment using Assistive, Adaptive, Supportive or Protective Equipment (ICD-10-PCS; 2016-12-15)
PROC: F08Z2FZ Grooming/Personal Hygiene Treatment using Assistive, Adaptive, Supportive or Protective Equipment (ICD-10-PCS; 2016-12-15)
PROC: F08Z1FZ Dressing Techniques Treatment using Assistive, Adaptive, Supportive or Protective Equipment (ICD-10-PCS; 2016-12-15)
PROC: F08Z0FZ Bathing/Showering Techniques Treatment using Assistive, Adaptive, Supportive or Protective Equipment (ICD-10-PCS; 2016-12-15)
DX: S42.122D Displaced fracture of acromial process, left shoulder, subsequent encounter for fracture with routine healing (principal); D68.59 Other primary thrombophilia; W18.00XD Striking against unspecified object with subsequent fall, subsequent encounter; M51.36 Other intervertebral disc degeneration, lumbar region; M54.5 Low back pain; J45.909 Unspecified asthma, uncomplicated; I10 Essential (primary) hypertension; G40.909 Epilepsy, unspecified, not intractable, without status epilepticus; R07.89 Other chest pain; Z79.01 Long term (current) use of anticoagulants; Z79.82 Long term (current) use of aspirin; Z86.718 Personal history of other venous thrombosis and embolism
CPT/HCPCS: 71010; 73030; 80053; 81003; 85025; 85610; 86703; 86803; 87081; 87086; 92507; 92523; 92610; 93005; 93922; 94640; 94664; 97110; 97112; 97116; 97150; 97163; 97167; 97530; 97535; J0360; J1170; J1650; J2060; J3420; J7030